=== PATIENT | female | born 1935 | race Caucasian/White ===

== ENCOUNTER 2017-04-29 14:59 | Emergency (ER) | payer MEDICARE, BC ==
[2017-04-29] MEDS ORDERED: SODIUM CHLORIDE 0.9% 1,000 ML IV STA (15:34)
--- NOTE | 2017-04-29 15:38 | ED ---
SOB HPI - General Source: patient, family, RN notes reviewed Mode of arrival: wheelchair Limitations: no limitations - History of Present Illness MD Complaint: shortness of breath <Urbano Goddard - Last Filed: 04/29/17 17:05> <Urbano García - Last Filed: 04/29/17 17:53> - General Chief Complaint: Shortness of Breath Stated Complaint: Diff breathing Time Seen by Provider: 04/29/17 15:15 - History of Present Illness Initial Comments: This is a 82-year-old female with a history dementia COPD from smoking many years ago who is brought in by her son because of wheezing and exertional dyspnea is been going on recently. He also has had hematuria this morning. Patient herself denies any fevers chills nausea vomiting sweats but she again does have dementia. (Urbano Goddard) - Related Data Home Medications Medication Instructions Recorded Confirmed Atorvastatin Calcium [Lipitor] 10 mg PO HS 04/29/17 04/29/17 Donepezil [Aricept] 10 mg PO HS 04/29/17 04/29/17 Hydrochlorothiazide [Hydrodiuril] 25 mg PO DAILY 04/29/17 04/29/17 Levothyroxine Sodium [Synthroid] 88 mcg PO DAILY 04/29/17 04/29/17 Metoprolol Tartrate [Lopressor] 50 mg PO BID 04/29/17 04/29/17 Omeprazole [PriLOSEC] 20 mg PO DAILY 04/29/17 04/29/17 Potassium Chloride [Klor-Con 10] 10 meq PO DAILY 04/29/17 04/29/17 Rivaroxaban [Xarelto] 15 mg PO DAILY 04/29/17 04/29/17 Rivaroxaban [Xarelto] 15 mg PO DAILY 04/29/17 04/29/17 Sertraline [Zoloft] 25 mg PO DAILY 04/29/17 04/29/17 amLODIPine [Norvasc] 10 mg PO DAILY 04/29/17 04/29/17 Previous Rx's Medication Instructions Recorded Albuterol Inhaler [Ventolin Hfa 1 - 2 puff INHALATION Q6HR PRN #1 04/29/17 Inhaler] inhaler Azithromycin [Zithromax Z-pack] 0 mg PO DIRECTED #6 tab 04/29/17 predniSONE 50 mg PO DAILY #5 tablet 04/29/17 Allergies Allergy/AdvReac Type Severity Reaction Status Date / Time No Known Allergies Allergy Verified 04/29/17 15:48 Review of Systems ROS Other: All systems not noted in ROS Statement are negative. <Urbano Goddard - Last Filed: 04/29/17 17:05> ROS Other: All systems not noted in ROS Statement are negative. <Urbano García - Last Filed: 04/29/17 17:53> ROS Statement: Those systems with pertinent positive or pertinent negative responses have been documented in the HPI. Past Medical History Past Medical History: Dementia History of Any Multi-Drug Resistant Organisms: None Reported Past Surgical History: No Surgical Hx Reported Past Psychological History: No Psychological Hx Reported Smoking Status: Former smoker Past Alcohol Use History: None Reported Past Drug Use History: None Reported <Urbano Goddard - Last Filed: 04/29/17 17:05> General Exam Limitations: no limitations General appearance: alert, in no apparent distress Head exam: Present: atraumatic, normocephalic, normal inspection Eye exam: Present: normal appearance, PERRL, EOMI. Absent: scleral icterus, conjunctival injection, periorbital swelling ENT exam: Present: mucous membranes dry Neck exam: Present: normal inspection. Absent: tenderness, meningismus, lymphadenopathy Respiratory exam: Present: decreased breath sounds Cardiovascular Exam: Present: tachycardia GI/Abdominal exam: Present: soft, normal bowel sounds. Absent: distended, tenderness, guarding, rebound, rigid Extremities exam: Present: normal inspection, full ROM, normal capillary refill. Absent: tenderness, pedal edema, joint swelling, calf tenderness Back exam: Present: normal inspection Neurological exam: Present: alert, altered, CN II-XII intact Psychiatric exam: Present: normal affect, normal mood Skin exam: Present: warm, dry, intact, normal color. Absent: rash <Urbnao Goddard - Last Filed: 04/29/17 17:05> <Urbano García - Last Filed: 04/29/17 17:53> - General Exam Comments Initial Comments: This is a well-developed well-nourished awake alert female (Urbano Goddard) Course <Urbano Goddard - Last Filed: 04/29/17 17:05> <Urbano García - Last Filed: 04/29/17 17:53> Vital Signs 04/29/17 04/29/17 15:25 16:46 Temperature 99.4 F Pulse Rate 111 H 100 Respiratory 20 18 Rate Blood Pressure 145/89 127/60 O2 Sat by Pulse 95 98 Oximetry - Reevaluation(s) Reevaluation #1: 04/29/17 17:09 The patient will be endorsed to Dr. García who will make the final disposition. (Urbano Goddard) Reevaluation #2: 04/29/17 17:47 Patient is reevaluated after sign out, her breathing is improved. At that time she does state that she has had some rectal bleeding. Rectal exam reveals multiple hemorrhoids. None of these are currently bleeding. Patient is encouraged to follow up with her primary care physician regarding these hemorrhoids. Hemoglobin 12.0. (Urbano García) Medical Decision Making - Lab Data Result diagrams: 04/29/17 15:15 04/29/17 15:15 <Urbano Goddard - Last Filed: 04/29/17 17:05> - Lab Data Result diagrams: 04/29/17 15:15 04/29/17 15:15 <Urbano García - Last Filed: 04/29/17 17:53> - Medical Decision Making 82-year-old female presented with cough and dyspnea. Patient has no formal diagnosis COPD however she does have a long time smoking history. Patient initially had some mild wheezing throughout all lung sarmiento. Laboratory studies were reviewed and are unremarkable. Chest x-ray is consistent with chronic bronchitis, no focal pneumonia. Patient will be discharged home with outpatient follow-up. She'll be given an inhaler and short course of steroids. Patient and her family was at bedside is agreeable with this plan. (Urbano García) - Lab Data Lab Results 04/29/17 04/29/17 04/29/17 Range/Units 15:15 15:15 15:15 WBC 10.7 H (3.8-10.6) k/uL RBC 3.93 (3.80-5.40) m/uL Hgb 12.0 (11.4-16.0) gm/dL Hct 34.7 (34.0-46.0) % MCV 88.1 (80.0-100.0) fL MCH 30.5 (25.0-35.0) pg MCHC 34.7 (31.0-37.0) g/dL RDW 13.5 (11.5-15.5) % Plt Count 308 (150-450) k/uL Neutrophils % 67 % Lymphocytes % 22 % Monocytes % 6 % Eosinophils % 2 % Basophils % 1 % Neutrophils # 7.1 (1.3-7.7) k/uL Lymphocytes # 2.3 (1.0-4.8) k/uL Monocytes # 0.7 (0-1.0) k/uL Eosinophils # 0.2 (0-0.7) k/uL Basophils # 0.1 (0-0.2) k/uL PT (9.0-12.0) sec INR (<1.1) APTT (22.0-30.0) sec Sodium 143 (137-145) mmol/L Potassium 4.2 (3.5-5.1) mmol/L Chloride 104 (98-107) mmol/L Carbon Dioxide 27 (22-30) mmol/L Anion Gap 12 mmol/L BUN 23 H (7-17) mg/dL Creatinine 1.16 H (0.52-1.04) mg/dL Est GFR (MDRD) Af Amer 54 (>60 ml/min/1.73 sqM) Est GFR (MDRD) Non-Af 45 (>60 ml/min/1.73 sqM) Glucose 96 (74-99) mg/dL Calcium 9.0 (8.4-10.2) mg/dL Magnesium 1.7 (1.6-2.3) mg/dL Total Bilirubin 0.7 (0.2-1.3) mg/dL AST 23 (14-36) U/L ALT 24 (9-52) U/L Alkaline Phosphatase 97 (38-126) U/L Total Creatine Kinase 99 (30-135) U/L CK-MB (CK-2) 2.2 (0.0-2.4) ng/mL CK-MB (CK-2) Rel Index 2.2 Troponin I <0.012 (0.000-0.034) ng/mL NT-Pro-B Natriuret Pep pg/mL Total Protein 6.7 (6.3-8.2) g/dL Albumin 3.8 (3.5-5.0) g/dL Urine Color Urine Appearance (Clear) Urine pH (5.0-8.0) Ur Specific [place] (1.001-1.035) Urine Protein (Negative) Urine Glucose (UA) (Negative) Urine Ketones (Negative) Urine Blood (Negative) Urine Nitrite (Negative) Urine Bilirubin (Negative) Urine Urobilinogen (<2.0) mg/dL Ur Leukocyte Esterase (Negative) Urine RBC (0-5) /hpf Urine WBC (0-5) /hpf Ur Squamous Epith Cells (0-4) /hpf Urine Bacteria (None) /hpf 04/29/17 04/29/17 04/29/17 Range/Units 15:15 15:15 17:00 WBC (3.8-10.6) k/uL RBC (3.80-5.40) m/uL Hgb (11.4-16.0) gm/dL Hct (34.0-46.0) % MCV (80.0-100.0) fL MCH (25.0-35.0) pg MCHC (31.0-37.0) g/dL RDW (11.5-15.5) % Plt Count (150-450) k/uL Neutrophils % % Lymphocytes % % Monocytes % % Eosinophils % % Basophils % % Neutrophils # (1.3-7.7) k/uL Lymphocytes # (1.0-4.8) k/uL Monocytes # (0-1.0) k/uL Eosinophils # (0-0.7) k/uL Basophils # (0-0.2) k/uL PT 11.0 (9.0-12.0) sec INR 1.1 (<1.1) APTT 23.7 (22.0-30.0) sec Sodium (137-145) mmol/L Potassium (3.5-5.1) mmol/L Chloride (98-107) mmol/L Carbon Dioxide (22-30) mmol/L Anion Gap mmol/L BUN (7-17) mg/dL Creatinine (0.52-1.04) mg/dL Est GFR (MDRD) Af Amer (>60 ml/min/1.73 sqM) Est GFR (MDRD) Non-Af (>60 ml/min/1.73 sqM) Glucose (74-99) mg/dL Calcium (8.4-10.2) mg/dL Magnesium (1.6-2.3) mg/dL Total Bilirubin (0.2-1.3) mg/dL AST (14-36) U/L ALT (9-52) U/L Alkaline Phosphatase (38-126) U/L Total Creatine Kinase (30-135) U/L CK-MB (CK-2) (0.0-2.4) ng/mL CK-MB (CK-2) Rel Index Troponin I (0.000-0.034) ng/mL NT-Pro-B Natriuret Pep 3500 pg/mL Total Protein (6.3-8.2) g/dL Albumin (3.5-5.0) g/dL Urine Color Yellow Urine Appearance Clear (Clear) Urine pH 6.0 (5.0-8.0) Ur Specific [place] 1.012 (1.001-1.035) Urine Protein Negative (Negative) Urine Glucose (UA) Negative (Negative) Urine Ketones Negative (Negative) Urine Blood Trace H (Negative) Urine Nitrite Negative (Negative) Urine Bilirubin Negative (Negative) Urine Urobilinogen <2.0 (<2.0) mg/dL Ur Leukocyte Esterase Moderate H (Negative) Urine RBC 1 (0-5) /hpf Urine WBC 8 H (0-5) /hpf Ur Squamous Epith Cells 5 H (0-4) /hpf Urine Bacteria Rare H (None) /hpf Disposition <Urbano Goddard - Last Filed: 04/29/17 17:05> Time of Disposition: 17:52 <Urbano García - Last Filed: 04/29/17 17:53> Clinical Impression: Chronic bronchitis Disposition: HOME SELF-CARE Condition: Good Instructions: Chronic Bronchitis (ED) Prescriptions: Albuterol Inhaler [Ventolin Hfa Inhaler] 1 - 2 puff INHALATION Q6HR PRN #1 inhaler PRN Reason: Wheezing Azithromycin [Zithromax Z-pack] 0 mg PO DIRECTED #6 tab predniSONE 50 mg PO DAILY #5 tablet Referrals: Payal Baron DO [Primary Care Provider] - 1-2 days
[2017-04-29 15:50] LABS: Basophils # (A) 0.1 k/uL (0-0.2); Basophils % (A) 1 %; CH 29.3; CHCM 33.4; Eosinophils # (A) 0.2 k/uL (0-0.7); Eosinophils % (A) 2 %; HCT 34.7 % (34.0-46.0); HDW 2.48; Luc # (Auto) 0.32; Luc % (Auto) 3; Lymphocytes # (A) 2.3 k/uL (1.0-4.8); Lymphocytes % (A) 22 %; MCH 30.5 pg (25.0-35.0); MCHC 34.7 g/dL (31.0-37.0); MCV 88.1 fL (80.0-100.0); Mean Platelet Volume 7.5; Monocytes # (A) 0.7 k/uL (0-1.0); Monocytes % (A) 6 %; Neutrophils # (A) 7.1 k/uL (1.3-7.7); Neutrophils % (A) 67 %; RBC 3.93 m/uL (3.80-5.40); RDW 13.5 % (11.5-15.5); WBC 10.7 k/uL (3.8-10.6); WBC (Perox) 10.63
[2017-04-29 16:01] LABS: Creatine Kinase 99 U/L (30-135)
[2017-04-29 16:03] LABS: Magnesium 1.7 mg/dL (1.6-2.3); Potassium 4.2 mmol/L (3.5-5.1); Total Bilirubin 0.7 mg/dL (0.2-1.3); Total Protein 6.7 g/dL (6.3-8.2)
[2017-04-29 16:11] LABS: INR 1.1 (<1.1); Partial Thromboplastin Time 23.7 sec (22.0-30.0)
[2017-04-29 16:14] LABS: Creatine Kinase MB 2.2 ng/mL (0.0-2.4); Troponin I <0.012 ng/mL (0.000-0.034)
--- NOTE | 2017-04-29 16:24 | XR ---
EXAMINATION TYPE: XR chest 2V DATE OF EXAM: 04/29/2017 COMPARISON: None HISTORY: 82-year-old female difficulty breathing TECHNIQUE: AP and lateral views FINDINGS: The heart is borderline enlarged. There is chronic arch calcifications. Mild diffuse interstitial pro minence with some peribronchial cuffing. Strandy atelectasis in the lower lungs. There is mild hyperi nflation with some flattening of the hemidiaphragms. No consolidation or pleural effusion seen. IMPRESSION: Chronic-appearing changes, possible chronic bronchitis/asthma. Correlate for possible underlying COPD . No focal infiltrate seen.
[2017-04-29 16:51] VITALS: RESP 18
[2017-04-29 17:12] LABS: Appearance,Urine Clear (Clear); Bacteria,Urine Rare /hpf; Bilirubin,Urine Negative (Negative); Glucose,Urine (UA) Negative (Negative); Ketones,Urine Negative (Negative); Leukocyte Esterase,Urine Moderate (Negative); Nitrite,Urine Negative (Negative); Particle Count 1660; Protein,Urine Negative (Negative); RBC,Urine 1 /hpf (0-5); Specific Gravity,Urine 1.012 (1.001-1.035); Squamous Epithelial Cell,Urine 5 /hpf (0-4); UA Billing (MACRO vs. MICRO) MICRO; Urobilinogen,Urine <2.0 mg/dL (<2.0); WBC,Urine 8 /hpf (0-5)
[2017-04-29 18:22] VITALS: BP 109/64; PULSE 102; TEMP 98.1
== END 2017-04-29 18:21 | disposition home or self-care (01) ==
LOC: EC 14:59
DX: J42 Unspecified chronic bronchitis (principal); R00.0 Tachycardia, unspecified; R31.9 Hematuria, unspecified; F03.90 Unspecified dementia, unspecified severity, without behavioral disturbance, psychotic disturbance, mood disturbance, and anxiety; Z87.891 Personal history of nicotine dependence; Z79.01 Long term (current) use of anticoagulants; Z79.899 Other long term (current) drug therapy
CPT/HCPCS: 36415; 71020; 80053; 81001; 82550; 82553; 83735; 83880; 84484; 85025; 85610; 85730; 96360; 96361; 99285

== ENCOUNTER → 2018-08-07 | Outpatient (CLI) | payer MEDICARE, BC ==
--- NOTE | 2018-08-07 14:37 | CT ---
EXAMINATION TYPE: CT brain wo con DATE OF EXAM: 08/07/2018 COMPARISON: None HISTORY: disorientation x3 weeks CT DLP: 1070 mGycm Automated exposure control for dose reduction was used. TECHNIQUE: CT scan of the head is performed without contrast. FINDINGS: There is no acute intracranial hemorrhage or midline shift identified. There is diffuse v entricular and sulcal prominence consistent with diffuse age-related cerebral atrophy. There is low- attenuation in the periventricular white matter consistent with chronic small vessel ischemic change. The globes are intact and the visualized sinuses are clear. IMPRESSION: 1. No acute intracranial hemorrhage or midline shift. 2. Ventricular prominence may be on the basis of diffuse age-related cerebral atrophy or normal press ure hydrocephalus. 2. Confluent areas of nonspecific white matter change with age indeterminate lacunar injury of the le ft lopes radiata favored to be chronic.
== END ==
LOC: RADCTMAIN 12:56
PROVIDERS: ATTEND Family Medicine
DX: R90.89 Other abnormal findings on diagnostic imaging of central nervous system (principal)
CPT/HCPCS: 70450

== ENCOUNTER 2019-11-30 22:21 | Inpatient (IN) | payer MEDICARE, BC ==
[2019-11-30] MEDS ORDERED: SODIUM CHLORIDE 0.9% 1,000 ML IV STA ×2 (22:45→23:37)
[2019-11-30] MEDS ORDERED: SODIUM CHLORIDE 0.9% 500 ML 500 ML IV STA (23:08)
--- NOTE | 2019-11-30 23:08 | ED ---
Weakness HPI - General Chief complaint: Weakness Stated complaint: weakness Time Seen by Provider: 11/30/19 22:45 Source: family, RN notes reviewed Mode of arrival: wheelchair Limitations: no limitations - History of Present Illness Initial comments: This is a 84-year-old female history dementia who started developing a slight cough last night but today her family noticed that she was not walking well and became lethargic and did progress throughout the day. She was not noted have a fever at home however upon arrival here she was found have a fever. She had no nausea no vomiting no phlegm production with her cough she was recently exposed to her son who did have some type of viral infection. He has since recovered. No other modifying factors at this time MD Complaint: generalized weakness - Related Data Home Medications Medication Instructions Recorded Confirmed Donepezil [Aricept] 10 mg PO HS 04/29/17 11/30/19 Levothyroxine Sodium [Synthroid] 88 mcg PO DAILY 04/29/17 11/30/19 Omeprazole [PriLOSEC] 20 mg PO DAILY 04/29/17 11/30/19 Rivaroxaban [Xarelto] 15 mg PO DAILY 04/29/17 11/30/19 amLODIPine [Norvasc] 10 mg PO DAILY 04/29/17 11/30/19 Memantine [Namenda] 10 mg PO BID 11/30/19 11/30/19 Sertraline [Zoloft] 50 mg PO DAILY 11/30/19 11/30/19 Previous Rx's Medication Instructions Recorded Albuterol Inhaler [Ventolin Hfa 1 - 2 puff INHALATION Q6HR PRN #1 04/29/17 Inhaler] inhaler Allergies Allergy/AdvReac Type Severity Reaction Status Date / Time No Known Allergies Allergy Verified 11/30/19 23:28 Review of Systems ROS Statement: Those systems with pertinent positive or pertinent negative responses have been documented in the HPI. ROS Other: All systems not noted in ROS Statement are negative. Past Medical History Past Medical History: Dementia History of Any Multi-Drug Resistant Organisms: None Reported Past Surgical History: No Surgical Hx Reported Past Psychological History: No Psychological Hx Reported Smoking Status: Former smoker Past Alcohol Use History: None Reported Past Drug Use History: None Reported General Exam - General Exam Comments Initial Comments: This is a well-developed asthenic appearing female who is awake alert but confu sed Limitations: no limitations General appearance: alert, anxious Head exam: Present: atraumatic, normocephalic, normal inspection Eye exam: Present: normal appearance, PERRL, EOMI. Absent: scleral icterus, conjunctival injection, periorbital swelling ENT exam: Present: mucous membranes dry Neck exam: Present: normal inspection. Absent: tenderness, meningismus, lymphadenopathy Respiratory exam: Present: decreased breath sounds. Absent: respiratory distress, wheezes, rales, rhonchi, stridor Cardiovascular Exam: Present: normal rhythm, tachycardia, normal heart sounds. Absent: systolic murmur, diastolic murmur, rubs, gallop, clicks GI/Abdominal exam: Present: soft, normal bowel sounds. Absent: distended, tenderness, guarding, rebound, rigid Rectal exam: Present: deferred Extremities exam: Present: normal inspection, full ROM, normal capillary refill. Absent: tenderness, pedal edema, joint swelling, calf tenderness Back exam: Present: normal inspection Neurological exam: Present: alert, altered, CN II-XII intact Psychiatric exam: Present: anxious Skin exam: Present: warm, dry, intact, normal color. Absent: rash Course Vital Signs 11/30/19 11/30/19 12/01/19 22:30 23:11 00:15 Temperature 101.2 F H 98.7 F Pulse Rate 115 H 135 H Respiratory 18 22 18 Rate Blood Pressure 122/57 111/92 O2 Sat by Pulse 96 96 Oximetry - Reevaluation(s) Reevaluation #1: 12/01/19 00:21 I did reassess the patient did discuss findings with the family patient does have influenza type a as well as dehydration renal insufficiency and new onset A. fib RVR. Reevaluation #2: 12/01/19 00:23 The elevated lactate appears to be secondary to dehydration Medical Decision Making - Lab Data Result diagrams: 11/30/19 22:04 11/30/19 22:04 Lab Results 11/30/19 11/30/19 11/30/19 Range/Units 22:04 22:04 22:04 WBC 9.0 (3.8-10.6) k/uL RBC 4.50 (3.80-5.40) m/uL Hgb 11.7 (11.4-16.0) gm/dL Hct 37.2 (34.0-46.0) % MCV 82.6 (80.0-100.0) fL MCH 26.1 (25.0-35.0) pg MCHC 31.5 (31.0-37.0) g/dL RDW 15.6 H (11.5-15.5) % Plt Count 286 (150-450) k/uL Neutrophils % 91 % Lymphocytes % 4 % Monocytes % 4 % Eosinophils % 1 % Basophils % 0 % Neutrophils # 8.1 H (1.3-7.7) k/uL Lymphocytes # 0.3 L (1.0-4.8) k/uL Monocytes # 0.4 (0-1.0) k/uL Eosinophils # 0.1 (0-0.7) k/uL Basophils # 0.0 (0-0.2) k/uL Hypochromasia Moderate PT (9.0-12.0) sec INR (<1.2) APTT (22.0-30.0) sec Sodium 138 (137-145) mmol/L Potassium 4.5 (3.5-5.1) mmol/L Chloride 102 (98-107) mmol/L Carbon Dioxide 24 (22-30) mmol/L Anion Gap 12 mmol/L BUN 24 H (7-17) mg/dL Creatinine 1.82 H (0.52-1.04) mg/dL Est GFR (CKD-EPI)AfAm 29 (>60 ml/min/1.73 sqM) Est GFR (CKD-EPI)NonAf 25 (>60 ml/min/1.73 sqM) Glucose 215 H (74-99) mg/dL Plasma Lactic Acid Adalid 2.8 H* (0.7-2.0) mmol/L Calcium 9.3 (8.4-10.2) mg/dL Magnesium 1.8 (1.6-2.3) mg/dL Total Bilirubin 0.6 (0.2-1.3) mg/dL AST 19 (14-36) U/L ALT 10 (4-34) U/L Alkaline Phosphatase 129 H (38-126) U/L Creatine Kinase 35 (30-135) U/L Troponin I (0.000-0.034) ng/mL Total Protein 6.8 (6.3-8.2) g/dL Albumin 4.0 (3.5-5.0) g/dL Urine Color Urine Appearance (Clear) Urine pH (5.0-8.0) Ur Specific [place] (1.001-1.035) Urine Protein (Negative) Urine Glucose (UA) (Negative) Urine Ketones (Negative) Urine Blood (Negative) Urine Nitrite (Negative) Urine Bilirubin (Negative) Urine Urobilinogen (<2.0) mg/dL Ur Leukocyte Esterase (Negative) Urine RBC (0-5) /hpf Urine WBC (0-5) /hpf Ur Squamous Epith Cells (0-4) /hpf Amorphous Sediment (None) /hpf Urine Bacteria (None) /hpf Hyaline Casts (0-2) /lpf Urine Mucus (None) /hpf Influenza Type A RNA (Not Detectd) Influenza Type B (PCR) (Not Detectd) 11/30/19 11/30/19 11/30/19 Range/Units 22:04 22:04 22:04 WBC (3.8-10.6) k/uL RBC (3.80-5.40) m/uL Hgb (11.4-16.0) gm/dL Hct (34.0-46.0) % MCV (80.0-100.0) fL MCH (25.0-35.0) pg MCHC (31.0-37.0) g/dL RDW (11.5-15.5) % Plt Count (150-450) k/uL Neutrophils % % Lymphocytes % % Monocytes % % Eosinophils % % Basophils % % Neutrophils # (1.3-7.7) k/uL Lymphocytes # (1.0-4.8) k/uL Monocytes # (0-1.0) k/uL Eosinophils # (0-0.7) k/uL Basophils # (0-0.2) k/uL Hypochromasia PT 10.2 (9.0-12.0) sec INR 1.0 (<1.2) APTT 21.5 L (22.0-30.0) sec Sodium (137-145) mmol/L Potassium (3.5-5.1) mmol/L Chloride (98-107) mmol/L Carbon Dioxide (22-30) mmol/L Anion Gap mmol/L BUN (7-17) mg/dL Creatinine (0.52-1.04) mg/dL Est GFR (CKD-EPI)AfAm (>60 ml/min/1.73 sqM) Est GFR (CKD-EPI)NonAf (>60 ml/min/1.73 sqM) Glucose (74-99) mg/dL Plasma Lactic Acid Adalid (0.7-2.0) mmol/L Calcium (8.4-10.2) mg/dL Magnesium (1.6-2.3) mg/dL Total Bilirubin (0.2-1.3) mg/dL AST (14-36) U/L ALT (4-34) U/L Alkaline Phosphatase (38-126) U/L Creatine Kinase (30-135) U/L Troponin I 0.018 (0.000-0.034) ng/mL Total Protein (6.3-8.2) g/dL Albumin (3.5-5.0) g/dL Urine Color Yellow Urine Appearance Cloudy H (Clear) Urine pH 6.0 (5.0-8.0) Ur Specific [place] 1.018 (1.001-1.035) Urine Protein Trace H (Negative) Urine Glucose (UA) Negative (Negative) Urine Ketones Negative (Negative) Urine Blood Negative (Negative) Urine Nitrite Negative (Negative) Urine Bilirubin Negative (Negative) Urine Urobilinogen 2.0 (<2.0) mg/dL Ur Leukocyte Esterase Moderate H (Negative) Urine RBC 1 (0-5) /hpf Urine WBC 15 H (0-5) /hpf Ur Squamous Epith Cells 1 (0-4) /hpf Amorphous Sediment Rare H (None) /hpf Urine Bacteria Occasional H (None) /hpf Hyaline Casts 29 H (0-2) /lpf Urine Mucus Occasional H (None) /hpf Influenza Type A RNA (Not Detectd) Influenza Type B (PCR) (Not Detectd) 11/30/19 Range/Units 22:04 WBC (3.8-10.6) k/uL RBC (3.80-5.40) m/uL Hgb (11.4-16.0) gm/dL Hct (34.0-46.0) % MCV (80.0-100.0) fL MCH (25.0-35.0) pg MCHC (31.0-37.0) g/dL RDW (11.5-15.5) % Plt Count (150-450) k/uL Neutrophils % % Lymphocytes % % Monocytes % % Eosinophils % % Basophils % % Neutrophils # (1.3-7.7) k/uL Lymphocytes # (1.0-4.8) k/uL Monocytes # (0-1.0) k/uL Eosinophils # (0-0.7) k/uL Basophils # (0-0.2) k/uL Hypochromasia PT (9.0-12.0) sec INR (<1.2) APTT (22.0-30.0) sec Sodium (137-145) mmol/L Potassium (3.5-5.1) mmol/L Chloride (98-107) mmol/L Carbon Dioxide (22-30) mmol/L Anion Gap mmol/L BUN (7-17) mg/dL Creatinine (0.52-1.04) mg/dL Est GFR (CKD-EPI)AfAm (>60 ml/min/1.73 sqM) Est GFR (CKD-EPI)NonAf (>60 ml/min/1.73 sqM) Glucose (74-99) mg/dL Plasma Lactic Acid Adalid (0.7-2.0) mmol/L Calcium (8.4-10.2) mg/dL Magnesium (1.6-2.3) mg/dL Total Bilirubin (0.2-1.3) mg/dL AST (14-36) U/L ALT (4-34) U/L Alkaline Phosphatase (38-126) U/L Creatine Kinase (30-135) U/L Troponin I (0.000-0.034) ng/mL Total Protein (6.3-8.2) g/dL Albumin (3.5-5.0) g/dL Urine Color Urine Appearance (Clear) Urine pH (5.0-8.0) Ur Specific [place] (1.001-1.035) Urine Protein (Negative) Urine Glucose (UA) (Negative) Urine Ketones (Negative) Urine Blood (Negative) Urine Nitrite (Negative) Urine Bilirubin (Negative) Urine Urobilinogen (<2.0) mg/dL Ur Leukocyte Esterase (Negative) Urine RBC (0-5) /hpf Urine WBC (0-5) /hpf Ur Squamous Epith Cells (0-4) /hpf Amorphous Sediment (None) /hpf Urine Bacteria (None) /hpf Hyaline Casts (0-2) /lpf Urine Mucus (None) /hpf Influenza Type A RNA Detected H (Not Detectd) Influenza Type B (PCR) Not Detected (Not Detectd) - EKG Data -: EKG Interpreted by Me (Atrial fibrillation rate was 132 QRS 62 QT since QTC 312/[address]) - Radiology Data Radiology results: report reviewed, image reviewed Critical Care Time Critical Care Time: Yes Critical Care Time: 35 minutes critical care time which includes initial presentation with history physical labs x-rays multiple reevaluation the patient discussed with patient family regarding the findings discussed with the admitting physician admission orders and documentation of the above Disposition Clinical Impression: Rapid atrial fibrillation, Influenza due to influenza virus, type A, human, Dehydration, Renal insufficiency syndrome, Febrile illness, acute Disposition: ADMITTED IP TO THIS HOSP Condition: Fair Referrals: Shyam Albarran MD [Primary Care Provider] - 1-2 days
--- NOTE | 2019-11-30 23:19 | XR ---
EXAMINATION TYPE: XR chest 2V DATE OF EXAM: 11/30/2019 COMPARISON: 04/29/2017 HISTORY: Difficulty breathing TECHNIQUE: 2 views FINDINGS: There is hiatal hernia. Lungs are clear of infiltrate. Heart is enlarged. There is no pleur al effusion. There are chest leads. IMPRESSION: Hiatal hernia. No active cardiopulmonary disease. No change.
[2019-11-30 23:24] LABS: Prothrombin Time 10.2 sec (9.0-12.0)
[2019-11-30 23:28] LABS: Amorphous Sediment,Urine Rare /hpf; Appearance,Urine Cloudy (Clear); Bacteria,Urine Occasional /hpf; Bilirubin,Urine Negative (Negative); Blood,Urine Negative (Negative); Calcium 9.3 mg/dL (8.4-10.2); Color,Urine Yellow; Glucose,Urine (UA) Negative (Negative); Hyaline Casts,Urine 29 /lpf (0-2); Ketones,Urine Negative (Negative); Leukocyte Esterase,Urine Moderate (Negative); Magnesium 1.8 mg/dL (1.6-2.3); Mucus,Urine Occasional /hpf; Nitrite,Urine Negative (Negative); Potassium 4.5 mmol/L (3.5-5.1); Protein,Urine Trace (Negative); RBC,Urine 1 /hpf (0-5); Specific Gravity,Urine 1.018 (1.001-1.035); Squamous Epithelial Cell,Urine 1 /hpf (0-4); Total Bilirubin 0.6 mg/dL (0.2-1.3); Total Protein 6.8 g/dL (6.3-8.2); WBC,Urine 15 /hpf (0-5)
[2019-11-30 23:33] LABS: Partial Thromboplastin Time 21.5 sec (22.0-30.0)
[2019-11-30 23:36] LABS: Basophils % (A) 0 %; Eosinophils # (A) 0.1 k/uL (0-0.7); Eosinophils % (A) 1 %; HCT 37.2 % (34.0-46.0); HGB 11.7 gm/dL (11.4-16.0); Hypochromasia Moderate; Lymphocytes # (A) 0.3 k/uL (1.0-4.8); Lymphocytes % (A) 4 %; MCH 26.1 pg (25.0-35.0); MCHC 31.5 g/dL (31.0-37.0); MCV 82.6 fL (80.0-100.0); Monocytes # (A) 0.4 k/uL (0-1.0); Monocytes % (A) 4 %; Neutrophils # (A) 8.1 k/uL (1.3-7.7); Neutrophils % (A) 91 %; Platelet Count 286 k/uL (150-450); RDW 15.6 % (11.5-15.5)
[2019-11-30] MEDS ORDERED: OSELTAMIVIR 75 MG CAP PO STA (23:37)
[2019-11-30] MEDS ORDERED: MAGNESIUM SULFATE-D5W PMX 1 GM in DEXTROSE/WATER 1 100ML.BAG IVPB ONE (23:37)
[2019-12-01] MEDS ORDERED: DILTIAZEM DRIP BOLUS FROM BAG 1 MG SOLN IV ONE (00:20)
[2019-12-01] MEDS ORDERED: NALOXONE 0.4 MG/ML 1 ML VIAL IV PRN (00:24)
[2019-12-01] MEDS: DILTIAZEM 125 MG in SODIUM CHLORIDE 0.9% 100 ML IV SCH (00:32)
[2019-12-01] MEDS: SODIUM CHLORIDE 0.9% 1,000 ML IV SCH ×4 (00:36→23:42)
--- NOTE | 2019-12-01 04:54 | XR ---
EXAMINATION TYPE: XR chest 1V portable DATE OF EXAM: 12/01/2019 COMPARISON: 11/30/2019 HISTORY: Weakness TECHNIQUE: FINDINGS: There is no heart failure nor confluent pneumonic infiltrate. Costophrenic angles are clear . There is calcified granulomata at the pulmonary tegan. There is hiatal hernia. The bony thorax is in tact. IMPRESSION: No active cardiopulmonary disease. Old granulomatous disease. No change.
[2019-12-01] MEDS: PANTOPRAZOLE 40 MG TABLET PO SCH (07:11)
[2019-12-01] MEDS: LEVOTHYROXINE 88 MCG TAB PO SCH (07:11)
[2019-12-01] MEDS: ALBUTEROL NEBULIZED 2.5 MG/3 ML INHALATION SCH ×3 (08:11→17:49)
[2019-12-01] MEDS: SERTRALINE 50 MG TAB PO SCH (08:43)
[2019-12-01] MEDS: amLODIPine 10 MG TAB PO SCH (08:43)
[2019-12-01] MEDS: MEMANTINE 10 MG TAB PO SCH ×2 (08:43→23:52)
--- NOTE | 2019-12-01 08:54 | CONS ---
BENJI Fragoso is an 84-year-old lady with history of hypertension, permanent atrial fibrillation and dementia who presented to hospital complaining of shortness of breath and was found to be positive for flu and was in atrial fibrillation with rapid ventricular rate. She started off with cough and became progressively more lethargic and unwell. I am not able to obtain any meaningful information from the patient. At the time of my evaluation, she is in atrial fibrillation with poorly controlled ventricular rate. She is on intravenous Cardizem drip. The patient is currently on Aricept, Synthroid, Prilosec, Xarelto, Norvasc, Namenda, Zoloft and albuterol. ALLERGIES: There are no known drug allergies. FAMILY HISTORY: Negative for premature coronary artery disease. SOCIAL HISTORY: Negative for current smoking, EtOH abuse, or drug abuse. REVIEW OF SYSTEMS: HEENT is unremarkable. CARDIAC: As described above. RESPIRATORY: Significant for shortness of breath. GI: Negative. GENITOURINARY: Negative. ALLERGY/IMMUNOLOGY: Negative. SKIN: Negative. MUSCULOSKELETAL: Significant for arthritis. PSYCHOSOCIAL: Negative. ENDOCRINE: Negative. DERM: Negative. CONSTITUTIONAL: Significant for flu. The rest of the system review is not relevant. PHYSICAL EXAMINATION: On exam, patient is comfortable at rest. Afebrile. Heart rate is 110 beats per minute. Blood pressure is 124/89. Respiratory rate is 18. Chest exam reveals diminished air entry at the bases. Heart exam reveals first and second heart sounds. Systolic murmur at the apex. Irregular rhythm. Abdomen is soft. Exam of extremities did not reveal any edema. Peripheral pulses are felt. LABS: Labs show a hemoglobin of 11.7, platelet count is 286, potassium is 4.5, BUN is 24, creatinine is 1.8. She is positive for influenza A. ASSESSMENT: 1. Permanent atrial fibrillation with poorly controlled ventricular rate. 2. Flu. PLAN: I will obtain a 2D echo on her to evaluate her LV function and continue the Cardizem drip and adjust as needed. MMODL / IJN: [id number] /
[2019-12-01] MEDS ORDERED: OSELTAMIVIR 75 MG CAP PO SCH (09:00)
--- NOTE | 2019-12-01 11:58 | ECHOF ---
Referral Reason:afib MEASUREMENTS -------- HEIGHT: 149.9 cm WEIGHT: 63.5 kg BP: 144/89 RVIDd: 3.4 cm (< 3.3) IVSd: 1.2 cm (0.6 - 1.1) LVIDd: 3.2 cm (3.9 - 5.3) LVPWd: 1.1 cm (0.6 - 1.1) IVSs: 1.7 cm LVIDs: 2.2 cm LVPWs: 1.5 cm LA Diam: 3.2 cm (2.7 - 3.8) LAESV Index (A-L): 19.09 ml/m Ao Diam: 3.0 cm (2.0 - 3.7) AV Cusp: 1.8 cm (1.5 - 2.6) MV EXCURSION: 13.991 mm (> 18.000) MV EF SLOPE: 88 mm/s (70 - 150) EPSS: 0.8 cm RAP: 15.00 mmHg RVSP: 36.52 mmHg FINDINGS -------- Atrial fibrillation. This was a technically adequate study. The left ventricular size is normal. There is borderline concentric left ventricular hypertrophy. Overall left ventricular systolic function is mildly impaired with, an EF between 45 - 50 %. The right ventricle is mildly enlarged. Normal LA size by volume 22+/-6 ml/m2. The right atrium is normal in size. Interatrial and interventricular septum intact. The aortic valve is trileaflet and appears structurally normal. Mild mitral annular calcification present. Mild mitral regurgitation is present. Mild tricuspid regurgitation present. There is mild pulmonary hypertension. The right ventricular systolic pressure, as measured by Doppler, is 36.52mmHg. There is no pulmonic regurgitation present. The aortic root size is normal. Normal inferior vena cava with less than 50% inspiratory collapse consistent with estimated right atr ial pressure of 15 mmHg. There is no pericardial effusion. CONCLUSIONS -------- 1. Atrial fibrillation. 2. This was a technically adequate study. 3. The left ventricular size is normal. 4. There is borderline concentric left ventricular hypertrophy. 5. Overall left ventricular systolic function is mildly impaired with, an EF between 45 - 50 %. 6. The right ventricle is mildly enlarged. 7. Normal LA size by volume 22+/-6 ml/m2. 8. The right atrium is normal in size. 9. Interatrial and interventricular septum intact. 10. The aortic valve is trileaflet and appears structurally normal. 11. Mild mitral annular calcification present. 12. Mild mitral regurgitation is present. 13. Mild tricuspid regurgitation present. 14. There is mild pulmonary hypertension. 15. The right ventricular systolic pressure, as measured by Doppler, is 36.52mmHg. 16. There is no pulmonic regurgitation present. 17. The aortic root size is normal. 18. Normal inferior vena cava with less than 50% inspiratory collapse consistent with estimated right atrial pressure of 15 mmHg. 19. There is no pericardial effusion. TANK ERECTOR: Jennifer Lee RDCS
[2019-12-01] MEDS: RIVAROXABAN 15 MG TAB PO SCH (15:53)
--- NOTE | 2019-12-01 21:22 | P.HPIM ---
History of Present Illness H&P Date: 12/01/19 Chief Complaint: Short of breath tired History of presenting complaint: This is a pleasant 84-year-old patient of Dr. jules. Chronic stable medical conditions include COPD, dementia, hypertension, osteoarthritis, hypothyroid,. Patient visits her son and [id number]. Normally uses a walker. He is group fitness assistant department head with some activities. Patient was noted to have a cough tired and became less active the course of 24 hours. We'll rundown congested chest. In the ER was noted to have a low-grade fever. Also found to be A. fib with rapid ventricular rate became more short of breath and ear. The problem BiPAP. Also put on a Cardizem drip for the A. fib. Really tired not able to give herself much of her history. Review of systems: GEN.: Tired fever EYES: None HEENT: None NECK: None RESPIRATORY: Congested chest] CARDIOVASCULAR: None GASTROINTESTINAL: None GENITOURINARY: None MUSCULOSKELETAL: Joint pains LYMPHATICS: None HEMATOLOGICAL: None PSYCHIATRY: [Forgetful NEUROLOGICAL: Uses a walker Past medical history to include: COPD, TIA, dementia, hypertension, osteoarthritis, hypothyroid, TIA, Social history: Physical son and [id number]. Does use a walker. Can feed herself with the food is so in small pieces. Does need assistance with bathing and dressing. Gets a daily caregiver. Does smoke in her teens and quit 20-30 years ago. No alcohol. Physical examination: VITAL SIGNS: 101.2, 115, 18, 122/57, 96% on room air GENERAL: BMI 28.3, laying in bed tired short of breath a bit lethargic. On BiPAP EYES: Pupils equal. Conjunctiva normal. HEENT: External appearance of nose and ears normal, oral cavity grossly normal. NECK: JVD unable to assess; masses not palpable. HEART: Heart sounds irregular no edema. LUNGS: Respiratory rate increased, decreased breaths on increased expiration. ABDOMEN: Soft, nontender, liver spleen not palpable, no masses palpable. PSYCH: [Lethargic tired NEUROLOGICAL: Cranial nerves grossly intact; no facial asymmetry, power and sensation grossly intact. LYMPHATICS: No lymph nodes palpable in the axilla and neck INVESTIGATIONS, reviewed in the clinical context: White count 9 hemoglobin 11.7 potassium 4.5 BUN 24 creatinine 1.8 to peptic acid 2.8 Troponin I 0.018, 0.0-5 UA positive for leukoesterase, bacteria hyaline casts Influenza type A RNA positive EKG tracing personally reviewed by me-Rj fib with a rate around 130s Chest x-ray film personally reviewed by me-possible basal infiltrate Assessment: -Acute influenza A pneumonitis, cannot rule out secondary bacterial infection, causing sepsis POA -Persistent atrial fibrillation with a rapid ventricular rate, chronically on xarelto -Troponin leak likely from uncontrolled A. fib doubt acute coronary syndrome -Acute hypoxic respiratory failure patient requiring BiPAP use this morning -Major cognitive impairment probably from late onset Alzheimer's dementia -Gait dysfunction uses a walker -Possible UTI -Kidney injury, acute versus chronic or both -Acute metabolic encephalopathy, multifactorial -Acute COPD exacerbation in an ex-smoker -Essential hypertension -Primary osteoarthritis -Hypothyroid Plan: Cardiology was consulted. Patient is put on a BiPAP. DuoNeb's, Tamiflu. Give IV fluids. Recheck renal function. Add inhaled steroids. And IV Solu-Medrol. Continue family the bedside. Prognosis guarded. Past Medical History Past Medical History: COPD, CVA/TIA, Dementia, Hypertension, Osteoarthritis (OA), Thyroid Disorder Additional Past Medical History / Comment(s): TIA, colitis in her 30s, hypothyroid, emphysema, bronchitis. History of Any Multi-Drug Resistant Organisms: None Reported Past Surgical History: No Surgical Hx Reported Additional Past Surgical History / Comment(s): Pt has never had surgery. Past Anesthesia/Blood Transfusion Reactions: Unable to Obtain Smoking Status: Former smoker - Past Family History Father Family Medical History: Myocardial Infarction (CT) Additional Family Medical History / Comment(s): Father of a CT at the age of 62 yrs. Mother Family Medical History: Respiratory Disorder Additional Family Medical History / Comment(s): Mother had lung disease. Medications and Allergies Home Medications Medication Instructions Recorded Confirmed Type Albuterol Inhaler [Ventolin Hfa 1 - 2 puff INHALATION Q6HR PRN #1 04/29/17 11/30/19 Rx Inhaler] inhaler Donepezil [Aricept] 10 mg PO HS 04/29/17 11/30/19 History Levothyroxine Sodium [Synthroid] 88 mcg PO DAILY 04/29/17 11/30/19 History Omeprazole [PriLOSEC] 20 mg PO DAILY 04/29/17 11/30/19 History Rivaroxaban [Xarelto] 15 mg PO DAILY 04/29/17 11/30/19 History amLODIPine [Norvasc] 10 mg PO DAILY 04/29/17 11/30/19 History Memantine [Namenda] 10 mg PO BID 11/30/19 11/30/19 History Sertraline [Zoloft] 50 mg PO DAILY 11/30/19 11/30/19 History Allergies Allergy/AdvReac Type Severity Reaction Status Date / Time No Known Allergies Allergy Verified 11/30/19 23:28 Physical Exam Vitals: Vital Signs Temp Pulse Resp BP Pulse Ox 12/01/19 10:00 81 18 118/69 95 12/01/19 09:00 100 18 127/89 94 L 12/01/19 08:31 90 18 94 L 12/01/19 08:27 101 H 12/01/19 08:12 96 12/01/19 08:00 99.8 F H 95 22 144/89 91 L 12/01/19 04:47 93 L 12/01/19 04:45 112 H 24 121/76 85 L 12/01/19 03:13 102 H 18 132/99 95 12/01/19 01:54 115 H 18 113/82 94 L 12/01/19 00:38 114 H 18 127/86 96 12/01/19 00:15 98.7 F 135 H 18 111/92 96 11/30/19 23:11 22 11/30/19 22:30 101.2 F H 115 H 18 122/57 96 Intake and Output 11/30/19 12/01/19 12/01/19 22:59 06:59 14:59 Intake Total 7.25 Balance 7.25 Intake: Intake, IV Titration 7.25 Amount Diltiazem 125 mg In 7.25 Sodium Chloride 0.9% 100 ml @ 5 MG/HR 5 mls/hr IV .Q24H [facility] Rx#:[id number] Other: Weight 63.503 kg 63.503 kg Results CBC & Chem 7: 11/30/19 22:04 11/30/19 22:04 Labs: Abnormal Lab Results - Last 24 Hours (Table) 11/30/19 11/30/19 11/30/19 Range/Units 22:04 22:04 22:04 RDW 15.6 H (11.5-15.5) % Neutrophils # 8.1 H (1.3-7.7) k/uL Lymphocytes # 0.3 L (1.0-4.8) k/uL APTT (22.0-30.0) sec BUN 24 H (7-17) mg/dL Creatinine 1.82 H (0.52-1.04) mg/dL Glucose 215 H (74-99) mg/dL Plasma Lactic Acid Adalid 2.8 H* (0.7-2.0) mmol/L Alkaline Phosphatase 129 H (38-126) U/L Urine Appearance (Clear) Urine Protein (Negative) Ur Leukocyte Esterase (Negative) Urine WBC (0-5) /hpf Amorphous Sediment (None) /hpf Urine Bacteria (None) /hpf Hyaline Casts (0-2) /lpf Urine Mucus (None) /hpf Influenza Type A RNA (Not Detectd) 11/30/19 11/30/19 11/30/19 Range/Units 22:04 22:04 22:04 RDW (11.5-15.5) % Neutrophils # (1.3-7.7) k/uL Lymphocytes # (1.0-4.8) k/uL APTT 21.5 L (22.0-30.0) sec BUN (7-17) mg/dL Creatinine (0.52-1.04) mg/dL Glucose (74-99) mg/dL Plasma Lactic Acid Adalid (0.7-2.0) mmol/L Alkaline Phosphatase (38-126) U/L Urine Appearance Cloudy H (Clear) Urine Protein Trace H (Negative) Ur Leukocyte Esterase Moderate H (Negative) Urine WBC 15 H (0-5) /hpf Amorphous Sediment Rare H (None) /hpf Urine Bacteria Occasional H (None) /hpf Hyaline Casts 29 H (0-2) /lpf Urine Mucus Occasional H (None) /hpf Influenza Type A RNA Detected H (Not Detectd) Thrombosis Risk Factor Assmnt - Choose All That Apply Any of the Below Risk Factors Present?: Yes Each Factor Represents 1 point: Abnormal pulmonary function (COPD), Obesity (BMI >25) Other Risk Factors: Yes Each Risk Factor Represents 3 Points: Age 75 years or older Other congenital or acquired thrombophilia - If yes, enter type in comment: No Thrombosis Risk Factor Assessment Total Risk Factor Score: 5 Thrombosis Risk Factor Assessment Level: High Risk
[2019-12-01 22:41] LABS: Calcium 8.1 mg/dL (8.4-10.2)
[2019-12-01] MEDS: DONEPEZIL 10 MG TAB PO SCH (23:52)
[2019-12-02] MEDS: DILTIAZEM 125 MG in SODIUM CHLORIDE 0.9% 100 ML IV SCH (00:30)
[2019-12-02] MEDS: ALBUTEROL NEBULIZED 2.5 MG/3 ML INHALATION SCH ×6 (00:46→23:42)
[2019-12-02] MEDS: PANTOPRAZOLE 40 MG TABLET PO SCH (07:11)
[2019-12-02] MEDS: SODIUM CHLORIDE 0.9% 1,000 ML IV SCH ×3 (07:11→17:00)
[2019-12-02] MEDS: LEVOTHYROXINE 88 MCG TAB PO SCH (07:11)
[2019-12-02 07:28] LABS: HCT 27.5 % (34.0-46.0); Hypochromasia Marked; MCH 25.8 pg (25.0-35.0); MCHC 31.1 g/dL (31.0-37.0); MCV 82.8 fL (80.0-100.0); Mean Platelet Volume 7.9; Platelet Count 194 k/uL (150-450); RBC 3.32 m/uL (3.80-5.40); RDW 15.9 % (11.5-15.5); WBC 4.3 k/uL (3.8-10.6)
[2019-12-02 07:34] LABS: Calcium 8.1 mg/dL (8.4-10.2); Potassium 3.9 mmol/L (3.5-5.1)
[2019-12-02 07:40] LABS: HGB 8.6 gm/dL (11.4-16.0)
[2019-12-02] MEDS: amLODIPine 10 MG TAB PO SCH (08:00)
[2019-12-02] MEDS: OSELTAMIVIR 60 MG/10 ML ORAL SYRINGE PO SCH (08:01)
[2019-12-02] MEDS: MEMANTINE 10 MG TAB PO SCH (08:01)
[2019-12-02] MEDS: SERTRALINE 50 MG TAB PO SCH (08:01)
[2019-12-02] MEDS: RIVAROXABAN 15 MG TAB PO SCH (08:01)
[2019-12-02] MEDS: METOPROLOL TARTRATE 25 MG TAB PO SCH ×2 (11:39→21:22)
--- NOTE | 2019-12-02 12:24 | P.PN ---
Subjective Progress Note Date: 12/02/19 This is an 84-year-old female with known history of hypertension, persistent atrial fibrillation, dementia, who presented to the hospital with symptoms of shortness of breath and malaise, she was found to be positive for the flu. Cardiology consultation was requested because of atrial fibrillation with a rapid ventricular response. Patient was seen in consultation yesterday by Dr. Zuñiga. Initiated on IV Cardizem drip. Echocardiogram with Doppler study was performed which revealed an ejection fraction of 45-50%. Blood pressure today 144/80 with a heart rate in the 80s. 91% on BiPAP. White blood cell count 4.3, hemoglobin 8.6, platelet count 194. Sodium 141, potassium 3.9, BUN 15, creatinine 1.3. Objective - Vital Signs Vital signs: Vital Signs Temp 97.6 F 12/01/19 20:00 Pulse 80 12/02/19 09:26 Resp 24 12/02/19 04:00 BP 145/83 12/02/19 00:00 Pulse Ox 91 L 12/02/19 00:00 Intake & Output 12/01/19 12/02/19 12/02/19 18:59 06:59 18:59 Intake Total 117.75 650 60 Balance 117.75 650 60 Weight 63.503 kg 70 kg Intake: Intake, IV Titration 117.75 Amount Diltiazem 125 mg In 117.75 Sodium Chloride 0.9% 100 ml @ 5 MG/HR 5 mls/hr IV .Q24H [facility] Rx#:[id number] Oral 60 Tube Feeding 650 Other: Voiding Method Diaper Diaper # Voids 1 1 # Bowel Movements 1 1 - Exam PHYSICAL EXAMINATION: GENERAL: 84-year-old female in no acute distress at the time of my examination HEENT: Head is atraumatic, normocephalic. Pupils equal, round. Sclera anicteric. Conjunctiva are clear. Mucous membranes of the mouth are moist. Neck is supple. There is no elevated jugular venous pressure. No carotid bruit is heard. HEART EXAMINATION: Heart S1 and S2 irregularly irregular a soft systolic murmur is heard CHEST EXAMINATION: Reveal scattered coarse rhonchi throughout. ABDOMEN: Soft, nontender. Bowel sounds are heard. No organomegaly noted. EXTREMITIES: 2+ peripheral pulses with no evidence of peripheral edema and no calf tenderness noted. NEUROLOGIC patient is awake, alert and oriented 1 . . - Labs CBC & Chem 7: 12/02/19 06:39 12/02/19 06:39 Labs: Abnormal Lab Results - Last 24 Hours (Table) 12/01/19 12/02/19 12/02/19 Range/Units 21:48 06:39 06:39 RBC 3.32 L (3.80-5.40) m/uL Hgb 8.6 L D (11.4-16.0) gm/dL Hct 27.5 L (34.0-46.0) % RDW 15.9 H (11.5-15.5) % Chloride 109 H 113 H (98-107) mmol/L Creatinine 1.23 H 1.30 H (0.52-1.04) mg/dL Glucose 106 H (74-99) mg/dL Calcium 8.1 L 8.1 L (8.4-10.2) mg/dL Microbiology - Last 24 Hours (Table) 11/30/19 22:04 Blood Culture - Preliminary Blood No Growth after 24 hours 11/30/19 22:04 Urine Culture - Preliminary Urine,Clean Catch Assessment and Plan Plan: Assessment and plan #1 influenza A #2 persistent atrial fibrillation #3 dementia #4 abnormality in troponin, no significant rise and fall pattern, likely secondary to influenza Plan Echocardiogram with Doppler study revealed an ejection fraction of 45-50%. We will discontinue the IV Cardizem drip, start patient on some beta radha. Continue Xarelto 15 mg daily. DNP note has been reviewed, I agree with a documented findings and plan of care. Patient was seen and examined.
--- NOTE | 2019-12-02 16:12 | P.CNPUL ---
History of Present Illness Consult date: 12/02/19 Reason for consult: dyspnea Chief complaint: Shortness of breath History of present illness: This is a 84-year-old female who was seen evaluated examined on third floor patient presented into the emergency department with increased symptoms of shortness of breath and generalized aches and pain patient has been found to positive for influenza as well, patient has been on A. fib with rapid ventricular response has been admitted to the hospital initially she was placed on BiPAP and Cardizem drip, subsequently changed to nasal cannula currently on 2 L oxygen, BiPAP has been discontinued, echocardiogram revealed ejection fraction of 45%, not much data obtained from the patient she is pleasantly confused Review of Systems All systems: negative Past Medical History Past Medical History: COPD, CVA/TIA, Dementia, Hypertension, Osteoarthritis (OA), Thyroid Disorder Additional Past Medical History / Comment(s): TIA, colitis in her 30s, hypothyroid, emphysema, bronchitis. History of Any Multi-Drug Resistant Organisms: None Reported Past Surgical History: No Surgical Hx Reported Additional Past Surgical History / Comment(s): Pt has never had surgery. Past Anesthesia/Blood Transfusion Reactions: Unable to Obtain Smoking Status: Former smoker - Past Family History Father Family Medical History: Myocardial Infarction ([place]) Additional Family Medical History / Comment(s): Father of a [place] at the age of 62 yrs. Mother Family Medical History: Respiratory Disorder Additional Family Medical History / Comment(s): Mother had lung disease. Medications and Allergies Home Medications Medication Instructions Recorded Confirmed Type Albuterol Inhaler [Ventolin Hfa 1 - 2 puff INHALATION Q6HR PRN #1 04/29/17 11/30/19 Rx Inhaler] inhaler Donepezil [Aricept] 10 mg PO HS 04/29/17 11/30/19 History Levothyroxine Sodium [Synthroid] 88 mcg PO DAILY 04/29/17 11/30/19 History Omeprazole [PriLOSEC] 20 mg PO DAILY 04/29/17 11/30/19 History Rivaroxaban [Xarelto] 15 mg PO DAILY 04/29/17 11/30/19 History amLODIPine [Norvasc] 10 mg PO DAILY 04/29/17 11/30/19 History Memantine [Namenda] 10 mg PO BID 11/30/19 11/30/19 History Sertraline [Zoloft] 50 mg PO DAILY 11/30/19 11/30/19 History Allergies Allergy/AdvReac Type Severity Reaction Status Date / Time No Known Allergies Allergy Verified 11/30/19 23:28 Physical Exam Vitals: Vital Signs Temp Pulse Pulse Resp BP Pulse Ox 12/02/19 15:59 89 22 12/02/19 13:29 78 12/02/19 13:17 76 12/02/19 12:00 98.0 F 89 24 120/66 95 12/02/19 09:26 80 12/02/19 09:17 84 12/02/19 08:00 98.8 F 81 24 124/63 97 12/02/19 04:00 91 24 12/02/19 01:03 80 12/02/19 00:46 80 12/02/19 00:00 91 24 145/83 91 L 12/01/19 23:43 81 20 12/01/19 20:00 97.6 F 81 20 133/62 93 L 12/01/19 17:59 86 12/01/19 17:49 83 Intake and Output 12/02/19 12/02/19 12/02/19 06:59 14:59 22:59 Intake Total 300 Balance 300 Intake: Oral 300 Other: Voiding Method Diaper Diaper Diaper # Voids 1 1 # Bowel Movements 1 1 Weight 70 kg - Constitutional General appearance: average body habitus, cooperative, disheveled, mild distress - EENT Eyes: EOMI, PERRLA, normal appearance ENT: normal oropharynx Ears: bilateral: normal - Neck Carotids: bilateral: upstroke normal Thyroid: bilateral: normal size - Respiratory Respiratory: bilateral: rales, rhonchi, wheezing, negative: CTA, diminished, dullness - Cardiovascular Rhythm: irregularly irregular Heart sounds: normal: S1, S2 - Gastrointestinal General gastrointestinal: normal bowel sounds, soft - Neurologic Neurologic: CNII-XII intact - Musculoskeletal Musculoskeletal: gait normal, generalized weakness, strength equal bilaterally - Psychiatric Psychiatric: appropriate affect, intact judgment & insight Results - Laboratory Findings CBC and BMP: 12/02/19 06:39 12/02/19 06:39 PT/INR, D-dimer PT 10.2 sec (9.0-12.0) 11/30/19 22:04 INR 1.0 (<1.2) 11/30/19 22:04 Abnormal lab findings: Abnormal Labs 11/30/19 11/30/19 11/30/19 22:04 22:04 22:04 RBC Hgb Hct RDW 15.6 H Neutrophils # 8.1 H Lymphocytes # 0.3 L APTT Chloride BUN 24 H Creatinine 1.82 H Glucose 215 H Plasma Lactic Acid Adalid 2.8 H* Calcium Alkaline Phosphatase 129 H Troponin I Urine Appearance Urine Protein Ur Leukocyte Esterase Urine WBC Amorphous Sediment Urine Bacteria Hyaline Casts Urine Mucus Influenza Type A RNA 11/30/19 11/30/19 11/30/19 22:04 22:04 22:04 RBC Hgb Hct RDW Neutrophils # Lymphocytes # APTT 21.5 L Chloride BUN Creatinine Glucose Plasma Lactic Acid Adalid Calcium Alkaline Phosphatase Troponin I Urine Appearance Cloudy H Urine Protein Trace H Ur Leukocyte Esterase Moderate H Urine WBC 15 H Amorphous Sediment Rare H Urine Bacteria Occasional H Hyaline Casts 29 H Urine Mucus Occasional H Influenza Type A RNA Detected H 12/01/19 12/01/19 12/02/19 10:29 21:48 06:39 RBC 3.32 L Hgb 8.6 L D Hct 27.5 L RDW 15.9 H Neutrophils # Lymphocytes # APTT Chloride 109 H BUN Creatinine 1.23 H Glucose 106 H Plasma Lactic Acid Adalid Calcium 8.1 L Alkaline Phosphatase Troponin I 0.038 H* Urine Appearance Urine Protein Ur Leukocyte Esterase Urine WBC Amorphous Sediment Urine Bacteria Hyaline Casts Urine Mucus Influenza Type A RNA 12/02/19 06:39 RBC Hgb Hct RDW Neutrophils # Lymphocytes # APTT Chloride 113 H BUN Creatinine 1.30 H Glucose Plasma Lactic Acid Adalid Calcium 8.1 L Alkaline Phosphatase Troponin I Urine Appearance Urine Protein Ur Leukocyte Esterase Urine WBC Amorphous Sediment Urine Bacteria Hyaline Casts Urine Mucus Influenza Type A RNA - Diagnostic Findings Chest x-ray: report reviewed, image reviewed (Chest x-ray unremarkable) Assessment and Plan Assessment: Influenza A pneumonia Acute on chronic respiratory failure due to multifactorial processes including influenza A pneumonia, sepsis, acute on chronic systolic heart failure Altered mental status confusion Sepsis secondary due to number influenza A pneumonia as well as urinary tract infection A. fib with RVR Acute on chronic systolic heart failure UTI Plan: Agree with Katja We'll cut down the IV fluids to 50 mL an hour Continue bronchodilator IV antibiotics with Rocephin Lasix 1 Time with Patient: Greater than 30
[2019-12-02] MEDS: FUROSEMIDE 10 MG/ML 2 ML VIAL IV SCH (16:59)
[2019-12-02] MEDS: DONEPEZIL 10 MG TAB PO SCH (21:21)
[2019-12-02] MEDS: MEMANTINE 5 MG TAB PO SCH (21:22)
--- NOTE | 2019-12-02 23:26 | P.PN ---
Subjective Progress Note Date: 12/02/19 Principal diagnosis: Acute influenza infection Persistent A. fib with RVR This is a pleasant 84-year-old patient of Dr. jules. Chronic stable medical conditions include COPD, dementia, hypertension, osteoarthritis, hypothyroid,. Patient visits her son and [id number]. Normally uses a walker. He is digital marketing assistant with some activities. Patient was noted to have a cough tired and became less active the course of 24 hours. We'll rundown congested chest. In the ER was noted to have a low-grade fever. Also found to be A. fib with rapid ventricular rate became more short of breath and ear. The problem BiPAP. Also put on a Cardizem drip for the A. fib. Really tired not able to give herself much of her history. INVESTIGATIONS, reviewed in the clinical context: White count 9 hemoglobin 11.7 potassium 4.5 BUN 24 creatinine 1.8 to peptic acid 2.8 Troponin I 0.018, 0.0-5 UA positive for leukoesterase, bacteria hyaline casts Influenza type A RNA positive EKG tracing personally reviewed by -Rj ayala with a rate around 130s Chest x-ray film personally reviewed by me-possible basal infiltrate 12/02/2019 Patient is currently lying in the bed comfortably. Confused and disoriented due to underlying dementia. Breathing status is improving. Patient is being qasim nued on Tamiflu and and antibiotics. Pulmonary is following. Heart rate is controlled. Cardizem drip has been discontinued. Cardiology has seen the patient. 2-D echocardiogram was done. Ejection fraction 45-50%. Currently off BiPAP. Patient is also on some IV Lasix. Monitor renal function. Patient has been afebrile. No nausea vomiting or abdominal pain. No diarrhea. Discussed with the family at bedside in detail. Current medications reviewed. Objective - Vital Signs Vital signs: Vital Signs Temp 98.0 F 12/02/19 12:00 Pulse 89 12/02/19 15:59 Resp 22 12/02/19 15:59 BP 120/66 12/02/19 12:00 Pulse Ox 95 12/02/19 12:00 Intake & Output 12/01/19 12/02/19 12/02/19 18:59 06:59 18:59 Intake Total 117.75 650 300 Balance 117.75 650 300 Weight 63.503 kg 70 kg Intake: Intake, IV Titration 117.75 Amount Diltiazem 125 mg In 117.75 Sodium Chloride 0.9% 100 ml @ 5 MG/HR 5 mls/hr IV .Q24H [facility] Rx#:[id number] Oral 300 Tube Feeding 650 Other: Voiding Method Diaper Diaper Diaper # Voids 1 1 # Bowel Movements 1 1 - Exam GENERAL: BMI 28.3, laying in bed tired short of breath a bit lethargic. On BiPAP EYES: Pupils equal. Conjunctiva normal. HEENT: External appearance of nose and ears normal, oral cavity grossly normal. NECK: JVD unable to assess; masses not palpable. HEART: Heart sounds irregular no edema. LUNGS: Respiratory rate increased, decreased breaths on increased expiration. ABDOMEN: Soft, nontender, liver spleen not palpable, no masses palpable. PSYCH: [Lethargic tired NEUROLOGICAL: Cranial nerves grossly intact; no facial asymmetry, underlying dementia. power and sensation grossly intact. LYMPHATICS: No lymph nodes palpable in the axilla and neck - Labs CBC & Chem 7: 12/02/19 06:39 12/02/19 06:39 Labs: Abnormal Lab Results - Last 24 Hours (Table) 12/01/19 12/02/19 12/02/19 Range/Units 21:48 06:39 06:39 RBC 3.32 L (3.80-5.40) m/uL Hgb 8.6 L D (11.4-16.0) gm/dL Hct 27.5 L (34.0-46.0) % RDW 15.9 H (11.5-15.5) % Chloride 109 H 113 H (98-107) mmol/L Creatinine 1.23 H 1.30 H (0.52-1.04) mg/dL Glucose 106 H (74-99) mg/dL Calcium 8.1 L 8.1 L (8.4-10.2) mg/dL Microbiology - Last 24 Hours (Table) 11/30/19 22:04 Urine Culture - Preliminary Urine,Clean Catch Gram Neg Bacilli 11/30/19 22:04 Blood Culture - Preliminary Blood No Growth after 24 hours Assessment and Plan Assessment: -Acute influenza A pneumonitis, cannot rule out secondary bacterial infection, causing sepsis POA -Persistent atrial fibrillation with a rapid ventricular rate, chronically on xarelto -Troponin leak likely from uncontrolled A. fib doubt acute coronary syndrome -Acute hypoxic respiratory failure patient requiring BiPAP use this morning -Major cognitive impairment probably from late onset Alzheimer's dementia -Gait dysfunction uses a walker -Possible UTI -Kidney injury, acute versus chronic or both -Acute metabolic encephalopathy, multifactorial -Acute COPD exacerbation in an ex-smoker -Essential hypertension -Primary osteoarthritis -Hypothyroid Plan: Patient was initially placed on BiPAP. Currently oxygenating well on nasal cannula oxygen. DuoNeb's, Tamiflu. Give IV fluids. Recheck renal function. inhaled steroids. was given Solu-Medrol. off Cardizem drip and patient was started on metoprolol. Cardiology has seen the patient. Continue with anticoagulation with xarelto. Continue family the bedside. Prognosis guarded. Time with Patient: Greater than 30
[2019-12-03] MEDS: LEVOTHYROXINE 88 MCG TAB PO SCH (05:52)
[2019-12-03] MEDS: ALBUTEROL NEBULIZED 2.5 MG/3 ML INHALATION SCH ×3 (07:25→19:19)
[2019-12-03 07:49] LABS: Anisocytosis Slight; Basophils # (A) 0.1 k/uL (0-0.2); Basophils % (A) 2 %; Eosinophils # (A) 0.1 k/uL (0-0.7); Eosinophils % (A) 1 %; HCT 33.2 % (34.0-46.0); HGB 10.1 gm/dL (11.4-16.0); Hypochromasia Moderate; Lymphocytes # (A) 0.9 k/uL (1.0-4.8); Lymphocytes % (A) 20 %; MCH 25.3 pg (25.0-35.0); MCHC 30.6 g/dL (31.0-37.0); MCV 82.8 fL (80.0-100.0); Mean Platelet Volume 9.1; Monocytes # (A) 0.4 k/uL (0-1.0); Monocytes % (A) 9 %; Neutrophils # (A) 3.1 k/uL (1.3-7.7); Neutrophils % (A) 66 %; Platelet Count 213 k/uL (150-450); RBC 4.01 m/uL (3.80-5.40); RDW 16.2 % (11.5-15.5); WBC 4.7 k/uL (3.8-10.6)
[2019-12-03 08:09] LABS: Calcium 8.4 mg/dL (8.4-10.2); Potassium 3.8 mmol/L (3.5-5.1)
[2019-12-03] MEDS: FUROSEMIDE 10 MG/ML 2 ML VIAL IV SCH (10:07)
[2019-12-03] MEDS: SERTRALINE 50 MG TAB PO SCH (10:08)
[2019-12-03] MEDS: PANTOPRAZOLE 40 MG TABLET PO SCH (10:08)
[2019-12-03] MEDS: METOPROLOL TARTRATE 25 MG TAB PO SCH ×2 (10:08→20:32)
[2019-12-03] MEDS: amLODIPine 10 MG TAB PO SCH (10:08)
[2019-12-03] MEDS: RIVAROXABAN 15 MG TAB PO SCH (10:59)
[2019-12-03] MEDS: MEMANTINE 5 MG TAB PO SCH ×2 (10:59→20:32)
[2019-12-03] MEDS: OSELTAMIVIR 60 MG/10 ML ORAL SYRINGE PO SCH (10:59)
[2019-12-03] MEDS: SODIUM CHLORIDE 0.9% 1,000 ML IV SCH (12:32)
[2019-12-03] MEDS: DONEPEZIL 10 MG TAB PO SCH (20:32)
[2019-12-03] MEDS ORDERED: ALBUTEROL NEBULIZED 2.5 MG/3 ML INHALATION PRN (21:24)
[2019-12-04] MEDS: LEVOTHYROXINE 88 MCG TAB PO SCH (06:04)
[2019-12-04] MEDS: ALBUTEROL NEBULIZED 2.5 MG/3 ML INHALATION SCH ×4 (08:50→21:07)
[2019-12-04] MEDS: amLODIPine 10 MG TAB PO SCH (09:19)
[2019-12-04] MEDS: SERTRALINE 50 MG TAB PO SCH (09:19)
[2019-12-04] MEDS: OSELTAMIVIR 60 MG/10 ML ORAL SYRINGE PO SCH (09:19)
[2019-12-04] MEDS: PANTOPRAZOLE 40 MG TABLET PO SCH (09:19)
[2019-12-04] MEDS: METOPROLOL TARTRATE 25 MG TAB PO SCH ×2 (09:19→20:24)
[2019-12-04] MEDS: MEMANTINE 5 MG TAB PO SCH ×2 (09:20→20:24)
[2019-12-04] MEDS: RIVAROXABAN 15 MG TAB PO SCH (09:20)
--- NOTE | 2019-12-04 10:19 | P.PN ---
Subjective Progress Note Date: 12/03/19 Principal diagnosis: Influenza A pneumonia Acute on chronic respiratory failure due to multifactorial processes including influenza A pneumonia, sepsis, acute on chronic systolic heart failure Altered mental status confusion Sepsis secondary due to number influenza A pneumonia as well as urinary tract infection A. fib with RVR Acute on chronic systolic heart failure 12/03/2019, patient seen eval examined during the rounds is still have ongoing shortness of breath cough and symptoms slightly better denies any sputum production shortness of breath slightly improved labs reviewed medications reviewed This is a 84-year-old female who was seen evaluated examined on third floor patient presented into the emergency department with increased symptoms of shortness of breath and generalized aches and pain patient has been found to positive for influenza as well, patient has been on A. fib with rapid ventricular response has been admitted to the hospital initially she was placed on BiPAP and Cardizem drip, subsequently changed to nasal cannula currently on 2 L oxygen, BiPAP has been discontinued, echocardiogram revealed ejection fraction of 45%, not much data obtained from the patient she is pleasantly confused Objective - Vital Signs Vital signs: Vital Signs Temp 97.6 F 12/03/19 20:51 Pulse 75 12/03/19 20:51 Resp 16 12/03/19 20:51 BP 107/79 12/03/19 20:51 Pulse Ox 96 12/03/19 20:51 Intake & Output 12/03/19 12/03/19 12/04/19 06:59 18:59 06:59 Intake Total 590 650 480 Output Total 1 Balance 590 649 480 Intake: Intake, IV Titration 100 Amount cefTRIAXone 1 gm In 100 Sodium Chloride 0.9% 50 ml @ 100 mls/hr IVPB Q24HR [facility] Rx#:[id number] Oral 590 550 480 Output: Stool 1 Other: Voiding Method Diaper Toilet Diaper # Voids 2 2 - Exam - Constitutional General appearance: average body habitus, cooperative, disheveled, mild distress - EENT Eyes: EOMI, PERRLA, normal appearance ENT: normal oropharynx Ears: bilateral: normal - Neck Carotids: bilateral: upstroke normal Thyroid: bilateral: normal size - Respiratory Respiratory: bilateral: rales, rhonchi, wheezing, negative: CTA, diminished, dullness - Cardiovascular Rhythm: irregularly irregular Heart sounds: normal: S1, S2 - Gastrointestinal General gastrointestinal: normal bowel sounds, soft - Neurologic Neurologic: CNII-XII intact - Musculoskeletal Musculoskeletal: gait normal, generalized weakness, strength equal bilaterally - Psychiatric Psychiatric: appropriate affect, intact judgment & insight - Labs CBC & Chem 7: 12/03/19 06:54 12/03/19 06:54 Labs: Abnormal Lab Results - Last 24 Hours (Table) 12/03/19 12/03/19 Range/Units 06:54 06:54 Hgb 10.1 L (11.4-16.0) gm/dL Hct 33.2 L (34.0-46.0) % MCHC 30.6 L (31.0-37.0) g/dL RDW 16.2 H (11.5-15.5) % Lymphocytes # 0.9 L (1.0-4.8) k/uL BUN 28 H (7-17) mg/dL Creatinine 1.41 H (0.52-1.04) mg/dL Microbiology - Last 24 Hours (Table) 11/30/19 22:04 Urine Culture - Final Urine,Clean Catch Escherichia coli 11/30/19 22:04 Blood Culture - Preliminary Blood No Growth after 48 hours Assessment and Plan Assessment: Influenza A pneumonia Acute on chronic respiratory failure due to multifactorial processes including influenza A pneumonia, sepsis, acute on chronic systolic heart failure Altered mental status confusion Sepsis secondary due to number influenza A pneumonia as well as urinary tract infection A. fib with RVR Acute on chronic systolic heart failure UTI Plan: Agree with Katja We'll cut down the IV fluids to 50 mL an hour Continue bronchodilator IV antibiotics with Rocephin Lasix 1 Time with Patient: Greater than 30
--- NOTE | 2019-12-04 10:22 | P.PN ---
Subjective Progress Note Date: 12/04/19 Principal diagnosis: Influenza A pneumonia Acute on chronic respiratory failure due to multifactorial processes including influenza A pneumonia, sepsis, acute on chronic systolic heart failure Altered mental status confusion Sepsis secondary due to number influenza A pneumonia as well as urinary tract infection A. fib with RVR Acute on chronic systolic heart failure 12/04/2019, patient seen and evaluated examined during the rounds labs reviewed medications reviewed urine culture is positive for E. coli not ESBL, blood cultures are negative, last chest x-ray on December 01 remained stable respiratory status continued to improve slowly labs reviewed medications review ed 12/03/2019, patient seen eval examined during the rounds is still have ongoing shortness of breath cough and symptoms slightly better denies any sputum production shortness of breath slightly improved labs reviewed medications reviewed This is a 84-year-old female who was seen evaluated examined on third floor patient presented into the emergency department with increased symptoms of shortness of breath and generalized aches and pain patient has been found to positive for influenza as well, patient has been on A. fib with rapid ventricular response has been admitted to the hospital initially she was placed on BiPAP and Cardizem drip, subsequently changed to nasal cannula currently on 2 L oxygen, BiPAP has been discontinued, echocardiogram revealed ejection fraction of 45%, not much data obtained from the patient she is pleasantly confused Objective - Vital Signs Vital signs: Vital Signs Temp 97.3 F L 12/04/19 05:00 Pulse 93 12/04/19 05:00 Resp 16 12/04/19 05:00 BP 105/65 12/04/19 05:00 Pulse Ox 91 L 12/04/19 05:00 Intake & Output 12/03/19 12/04/19 12/04/19 18:59 06:59 18:59 Intake Total 650 1430 Output Total 1 1 Balance 649 1429 Intake: Intake, IV Titration 100 Amount cefTRIAXone 1 gm In 100 Sodium Chloride 0.9% 50 ml @ 100 mls/hr IVPB Q24HR [facility] Rx#:[id number] Oral 550 1430 Output: Stool 1 1 Other: Voiding Method Toilet Toilet Diaper Diaper # Voids 2 2 - Exam - Constitutional General appearance: average body habitus, cooperative, disheveled, mild distress - EENT Eyes: EOMI, PERRLA, normal appearance ENT: normal oropharynx Ears: bilateral: normal - Neck Carotids: bilateral: upstroke normal Thyroid: bilateral: normal size - Respiratory Respiratory: bilateral: rales, rhonchi, wheezing, negative: CTA, diminished, dullness - Cardiovascular Rhythm: irregularly irregular Heart sounds: normal: S1, S2 - Gastrointestinal General gastrointestinal: normal bowel sounds, soft - Neurologic Neurologic: CNII-XII intact - Musculoskeletal Musculoskeletal: gait normal, generalized weakness, strength equal bilaterally - Psychiatric Psychiatric: appropriate affect, intact judgment & insight - Labs CBC & Chem 7: 12/03/19 06:54 12/03/19 06:54 Labs: Microbiology - Last 24 Hours (Table) 11/30/19 22:04 Blood Culture - Preliminary Blood No Growth after 72 hours 11/30/19 22:04 Urine Culture - Final Urine,Clean Catch Escherichia coli Assessment and Plan Assessment: Influenza A pneumonia Acute on chronic respiratory failure due to multifactorial processes including influenza A pneumonia, sepsis, acute on chronic systolic heart failure Altered mental status confusion Sepsis secondary due to number influenza A pneumonia as well as urinary tract infection A. fib with RVR Acute on chronic systolic heart failure UTI due to E. coli Plan: Agree with Katja We'll cut down the IV fluids to 50 mL an hour Continue bronchodilator IV antibiotics with Rocephin Lasix 1
[2019-12-04] MEDS: FUROSEMIDE 10 MG/ML 2 ML VIAL IV SCH (10:25)
[2019-12-04] MEDS: SODIUM CHLORIDE 0.9% 1,000 ML IV SCH (11:40)
[2019-12-04] MEDS: FUROSEMIDE 20 MG TAB PO SCH (13:54)
[2019-12-04] MEDS: DONEPEZIL 10 MG TAB PO SCH (20:23)
[2019-12-05] MEDS: LEVOTHYROXINE 88 MCG TAB PO SCH (06:05)
[2019-12-05] MEDS: ALBUTEROL NEBULIZED 2.5 MG/3 ML INHALATION SCH ×4 (08:31→20:44)
[2019-12-05] MEDS: FUROSEMIDE 20 MG TAB PO SCH (09:42)
[2019-12-05] MEDS: amLODIPine 10 MG TAB PO SCH (09:42)
[2019-12-05] MEDS: ACETAMINOPHEN TAB 325 MG TAB PO PRN (09:43)
[2019-12-05] MEDS: SERTRALINE 50 MG TAB PO SCH (09:43)
[2019-12-05] MEDS: PANTOPRAZOLE 40 MG TABLET PO SCH (09:44)
[2019-12-05] MEDS: METOPROLOL TARTRATE 25 MG TAB PO SCH ×2 (09:45→21:13)
[2019-12-05] MEDS: MEMANTINE 5 MG TAB PO SCH ×2 (10:57→21:14)
[2019-12-05] MEDS: RIVAROXABAN 15 MG TAB PO SCH (10:57)
[2019-12-05] MEDS: DONEPEZIL 10 MG TAB PO SCH (21:13)
--- NOTE | 2019-12-05 23:42 | P.PN ---
Subjective Progress Note Date: 12/03/19 Principal diagnosis: Acute influenza infection Persistent A. fib with RVR This is a pleasant 84-year-old patient of Dr. jules. Chronic stable medical conditions include COPD, dementia, hypertension, osteoarthritis, hypothyroid,. Patient visits her son and [id number]. Normally uses a walker. He is logistics assistant with some activities. Patient was noted to have a cough tired and became less active the course of 24 hours. We'll rundown congested chest. In the ER was noted to have a low-grade fever. Also found to be A. fib with rapid ventricular rate became more short of breath and ear. The problem BiPAP. Also put on a Cardizem drip for the A. fib. Really tired not able to give herself much of her history. INVESTIGATIONS, reviewed in the clinical context: White count 9 hemoglobin 11.7 potassium 4.5 BUN 24 creatinine 1.8 to peptic acid 2.8 Troponin I 0.018, 0.0-5 UA positive for leukoesterase, bacteria hyaline casts Influenza type A RNA positive EKG tracing personally reviewed by -Rj ayala with a rate around 130s Chest x-ray film personally reviewed by me-possible basal infiltrate 12/02/2019 Patient is currently lying in the bed comfortably. Confused and disoriented due to underlying dementia. Breathing status is improving. Patient is being qasim nued on Tamiflu and and antibiotics. Pulmonary is following. Heart rate is controlled. Cardizem drip has been discontinued. Cardiology has seen the patient. 2-D echocardiogram was done. Ejection fraction 45-50%. Currently off BiPAP. Patient is also on some IV Lasix. Monitor renal function. Patient has been afebrile. No nausea vomiting or abdominal pain. No diarrhea. Discussed with the family at bedside in detail. 12/03/2019 Patient is currently lying in the bed comfortably. Breathing status is improving. Heart rate is controlled. Lasix changed to by mouth. Patient is being continued on Tamiflu. Hemodynamically stable. Patient is being transferred to general medical floor today. Patient is a poor historian due to underlying dementia along with possible delirium. Current medications reviewed. Objective - Vital Signs Vital signs: Vital Signs Temp 97.6 F 12/03/19 20:51 Pulse 75 12/03/19 20:51 Resp 16 12/03/19 20:51 BP 107/79 12/03/19 20:51 Pulse Ox 96 12/03/19 20:51 Intake & Output 12/03/19 12/03/19 12/04/19 06:59 18:59 06:59 Intake Total 590 650 480 Output Total 1 Balance 590 649 480 Intake: Intake, IV Titration 100 Amount cefTRIAXone 1 gm In 100 Sodium Chloride 0.9% 50 ml @ 100 mls/hr IVPB Q24HR [facility] Rx#:[id number] Oral 590 550 480 Output: Stool 1 Other: Voiding Method Diaper Toilet Diaper # Voids 2 2 - Exam PHYSICAL EXAMINATION: Patient is lying in the bed comfortably, no acute distress, awake alert but disoriented. Delirious. HEENT: Normocephalic. Neck is supple. Pupils reactive. Nostrils clear. Oral cavity is moist. Ears reveal no drainage. Neck reveals no JVD, carotid bruits, or thyromegaly. CHEST EXAMINATION: Trachea is central. Symmetrical expansion. Bibasilar diminished air entry. Scattered rhonchi. Lung sarmiento clear to auscultation and percussion. CARDIAC: Normal S1, S2 with no gallops. No murmurs ABDOMEN: Soft. Bowel sounds normal. No organomegaly. No abdominal bruits. Extremities: reveal no edema. No clubbing or cyanosis Neurologically awake, alert but not oriented . No gross focal deficits noted Skin: No rash or skin lesions. Psychiatric: Noncooperative Musculoskeletal: No joint swelling or deformity. Normal range of motion. - Labs CBC & Chem 7: 12/03/19 06:54 12/03/19 06:54 Labs: Abnormal Lab Results - Last 24 Hours (Table) 12/03/19 12/03/19 Range/Units 06:54 06:54 Hgb 10.1 L (11.4-16.0) gm/dL Hct 33.2 L (34.0-46.0) % MCHC 30.6 L (31.0-37.0) g/dL RDW 16.2 H (11.5-15.5) % Lymphocytes # 0.9 L (1.0-4.8) k/uL BUN 28 H (7-17) mg/dL Creatinine 1.41 H (0.52-1.04) mg/dL Microbiology - Last 24 Hours (Table) 11/30/19 22:04 Urine Culture - Final Urine,Clean Catch Escherichia coli 11/30/19 22:04 Blood Culture - Preliminary Blood No Growth after 48 hours Assessment and Plan Assessment: -Acute influenza A pneumonitis, cannot rule out secondary bacterial infection, causing sepsis POA -Persistent atrial fibrillation with a rapid ventricular rate, chronically on xarelto -Troponin leak likely from uncontrolled A. fib doubt acute coronary syndrome -Acute hypoxic respiratory failure patient requiring BiPAP use this morning -Major cognitive impairment probably from late onset Alzheimer's dementia -Gait dysfunction uses a walker -Possible UTI -Kidney injury, acute versus chronic or both -Acute metabolic encephalopathy, multifactorial -Acute COPD exacerbation in an ex-smoker -Essential hypertension -Primary osteoarthritis -Hypothyroid Plan: Patient was initially placed on BiPAP. Currently oxygenating well on nasal cannula oxygen. DuoNeb's, Tamiflu. Give IV fluids. Recheck renal function. inhaled steroids. was given Solu-Medrol. Currently off steroids. off Cardizem drip and patient was started on metoprolol. Cardiology has seen the patient. Continue with anticoagulation with xarelto. Continue family the bedside. Prognosis guarded. Time with Patient: Greater than 30
--- NOTE | 2019-12-05 23:47 | P.PN ---
Subjective Progress Note Date: 12/04/19 Principal diagnosis: Acute influenza infection Persistent A. fib with RVR This is a pleasant 84-year-old patient of Dr. jules. Chronic stable medical conditions include COPD, dementia, hypertension, osteoarthritis, hypothyroid,. Patient visits her son and [id number]. Normally uses a walker. He is personal assistant with some activities. Patient was noted to have a cough tired and became less active the course of 24 hours. We'll rundown congested chest. In the ER was noted to have a low-grade fever. Also found to be A. fib with rapid ventricular rate became more short of breath and ear. The problem BiPAP. Also put on a Cardizem drip for the A. fib. Really tired not able to give herself much of her history. INVESTIGATIONS, reviewed in the clinical context: White count 9 hemoglobin 11.7 potassium 4.5 BUN 24 creatinine 1.8 to peptic acid 2.8 Troponin I 0.018, 0.0-5 UA positive for leukoesterase, bacteria hyaline casts Influenza type A RNA positive EKG tracing personally reviewed by me-Rj ayala with a rate around 130s Chest x-ray film personally reviewed by me-possible basal infiltrate 12/02/2019 Patient is currently lying in the bed comfortably. Confused and disoriented due to underlying dementia. Breathing status is improving. Patient is being qasim nued on Tamiflu and and antibiotics. Pulmonary is following. Heart rate is controlled. Cardizem drip has been discontinued. Cardiology has seen the patient. 2-D echocardiogram was done. Ejection fraction 45-50%. Currently off BiPAP. Patient is also on some IV Lasix. Monitor renal function. Patient has been afebrile. No nausea vomiting or abdominal pain. No diarrhea. Discussed with the family at bedside in detail. 12/03/2019 Patient is currently lying in the bed comfortably. Breathing status is improving. Heart rate is controlled. Lasix changed to by mouth. Patient is being continued on Tamiflu. Hemodynamically stable. Patient is being transferred to general medical floor today. Patient is a poor historian due to underlying dementia along with possible delirium. 12/04/2019 Patient is currently lying in the bed comfortably. Awake alert but not oriented. Seems delirious. Patient did rule out for IV line and refusing to take medications. Currently patient is saturating well on room air. No fever or chills or night. No chest pain or shortness of breath. Continued on breathing treatments and completed Tamiflu course. Urine cultures positive for E. coli. Blood cultures have been negative so far Patient will be continued on ceftriaxone. Current medications reviewed. Objective - Vital Signs Vital signs: Vital Signs Temp 98.2 F 12/04/19 12:26 Pulse 84 12/04/19 21:18 Resp 20 12/04/19 21:07 BP 113/63 12/04/19 12:26 Pulse Ox 93 L 12/04/19 16:23 Intake & Output 12/04/19 12/04/19 12/05/19 06:59 18:59 06:59 Intake Total 1430 550 Output Total 1 Balance 1429 550 Intake: Oral 1430 550 Output: Stool 1 Other: Voiding Method Toilet Toilet Diaper Diaper # Voids 2 2 - Exam PHYSICAL EXAMINATION: Patient is lying in the bed comfortably, no acute distress, awake alert but disoriented. Delirious. HEENT: Normocephalic. Neck is supple. Pupils reactive. Nostrils clear. Oral cavity is moist. Ears reveal no drainage. Neck reveals no JVD, carotid bruits, or thyromegaly. CHEST EXAMINATION: Trachea is central. Symmetrical expansion. Bibasilar diminished air entry. No wheezing or rhonchi. Lung sarmiento clear to auscultation and percussion. CARDIAC: Normal S1, S2 with no gallops. No murmurs ABDOMEN: Soft. Bowel sounds normal. No organomegaly. No abdominal bruits. Extremities: reveal no edema. No clubbing or cyanosis Neurologically awake, alert but not oriented . No gross focal deficits noted Skin: No rash or skin lesions. Psychiatric: Noncooperative Musculoskeletal: No joint swelling or deformity. Normal range of motion. - Labs CBC & Chem 7: 12/03/19 06:54 12/03/19 06:54 Labs: Microbiology - Last 24 Hours (Table) 11/30/19 22:04 Blood Culture - Preliminary Blood No Growth after 72 hours Assessment and Plan Assessment: -Acute influenza A pneumonitis, cannot rule out secondary bacterial infection, causing sepsis POA -E. coli urinary tract infection -Persistent atrial fibrillation with a rapid ventricular rate, chronically on xarelto -Troponin leak likely from uncontrolled A. fib doubt acute coronary syndrome -Acute hypoxic respiratory failure patient requiring BiPAP initially. -Major cognitive impairment probably from late onset Alzheimer's dementia -Gait dysfunction uses a walker -Kidney injury, acute versus chronic or both -Acute metabolic encephalopathy, multifactorial -Acute COPD exacerbation in an ex-smoker. Improved -Essential hypertension -Primary osteoarthritis -Hypothyroid Plan: Patient was initially placed on BiPAP. Currently oxygenating well on nasal cannula oxygen. DuoNeb's, Tamiflu. Give IV fluids. Recheck renal function. inhaled steroids. was given Solu-Medrol. Currently off steroids. off Cardizem drip and patient was started on metoprolol. Cardiology has seen the patient. Continue with anticoagulation with xarelto. Continue family the bedside. Prognosis guarded. Time with Patient: Greater than 30
--- NOTE | 2019-12-05 23:50 | P.PN ---
Subjective Progress Note Date: 12/05/19 Principal diagnosis: Acute influenza infection Persistent A. fib with RVR This is a pleasant 84-year-old patient of Dr. jules. Chronic stable medical conditions include COPD, dementia, hypertension, osteoarthritis, hypothyroid,. Patient visits her son and [id number]. Normally uses a walker. He is commercial escrow assistant with some activities. Patient was noted to have a cough tired and became less active the course of 24 hours. We'll rundown congested chest. In the ER was noted to have a low-grade fever. Also found to be A. fib with rapid ventricular rate became more short of breath and ear. The problem BiPAP. Also put on a Cardizem drip for the A. fib. Really tired not able to give herself much of her history. INVESTIGATIONS, reviewed in the clinical context: White count 9 hemoglobin 11.7 potassium 4.5 BUN 24 creatinine 1.8 to peptic acid 2.8 Troponin I 0.018, 0.0-5 UA positive for leukoesterase, bacteria hyaline casts Influenza type A RNA positive EKG tracing personally reviewed by me-Rj ayala with a rate around 130s Chest x-ray film personally reviewed by me-possible basal infiltrate 12/02/2019 Patient is currently lying in the bed comfortably. Confused and disoriented due to underlying dementia. Breathing status is improving. Patient is being qasim nued on Tamiflu and and antibiotics. Pulmonary is following. Heart rate is controlled. Cardizem drip has been discontinued. Cardiology has seen the patient. 2-D echocardiogram was done. Ejection fraction 45-50%. Currently off BiPAP. Patient is also on some IV Lasix. Monitor renal function. Patient has been afebrile. No nausea vomiting or abdominal pain. No diarrhea. Discussed with the family at bedside in detail. 12/03/2019 Patient is currently lying in the bed comfortably. Breathing status is improving. Heart rate is controlled. Lasix changed to by mouth. Patient is being continued on Tamiflu. Hemodynamically stable. Patient is being transferred to general medical floor today. Patient is a poor historian due to underlying dementia along with possible delirium. 12/04/2019 Patient is currently lying in the bed comfortably. Awake alert but not oriented. Seems delirious. Patient did rule out for IV line and refusing to take medications. Currently patient is saturating well on room air. No fever or chills or night. No chest pain or shortness of breath. Continued on breathing treatments and completed Tamiflu course. Urine cultures positive for E. coli. Blood cultures have been negative so far Patient will be continued on ceftriaxone. 12/05/2019 Patient is currently sitting in the chair comfortably. But delirious and noncooperative. Patient pulled out IV line yesterday. Antibiotics will be changed to by mouth. patient has been afebrile. Currently saturating well on 94% on room air. Patient is being continued on DuoNeb's and cardiac medications including anticoagulation. Patient is not eating very well and refusing IV fluids. Monitor closely and anticipate discharged to extended care facility for next 24- 48 hours. Current medications reviewed. Objective - Vital Signs Vital signs: Vital Signs Temp 98.2 F 12/05/19 13:00 Pulse 89 12/05/19 13:00 Resp 17 12/05/19 13:00 BP 109/74 12/05/19 13:00 Pulse Ox 94 L 12/05/19 13:00 Intake & Output 12/04/19 12/05/19 12/05/19 18:59 06:59 18:59 Intake Total 802 043 7067 Output Total 1 Balance 630 036 9090 Intake: Oral 476 956 1392 Output: Stool 1 Other: Voiding Method Toilet Toilet Toilet Diaper Diaper Diaper # Voids 2 2 1 # Bowel Movements 1 - Exam PHYSICAL EXAMINATION: Patient is lying in the bed comfortably, no acute distress, awake alert but disoriented. Delirious. HEENT: Normocephalic. Neck is supple. Pupils reactive. Nostrils clear. Oral cavity is moist. Ears reveal no drainage. Neck reveals no JVD, carotid bruits, or thyromegaly. CHEST EXAMINATION: Trachea is central. Symmetrical expansion. Bibasilar di minished air entry. No wheezing or rhonchi. Lung sarmiento clear to auscultation and percussion. CARDIAC: Normal S1, S2 with no gallops. No murmurs ABDOMEN: Soft. Bowel sounds normal. No organomegaly. No abdominal bruits. Extremities: reveal no edema. No clubbing or cyanosis Neurologically awake, alert but not oriented . No gross focal deficits noted Skin: No rash or skin lesions. Psychiatric: Noncooperative Musculoskeletal: No joint swelling or deformity. Normal range of motion. - Labs CBC & Chem 7: 12/03/19 06:54 12/03/19 06:54 Labs: Microbiology - Last 24 Hours (Table) 11/30/19 22:04 Blood Culture - Preliminary Blood No Growth after 96 hours Assessment and Plan Assessment: -Acute influenza A pneumonitis, cannot rule out secondary bacterial infection, causing sepsis POA -E. coli urinary tract infection -Persistent atrial fibrillation with a rapid ventricular rate, chronically on xarelto -Troponin leak likely from uncontrolled A. fib doubt acute coronary syndrome -Acute hypoxic respiratory failure patient requiring BiPAP initially. -Major cognitive impairment probably from late onset Alzheimer's dementia -Gait dysfunction uses a walker -Kidney injury, acute versus chronic or both -Acute metabolic encephalopathy, multifactorial -Acute COPD exacerbation in an ex-smoker. Improved -Essential hypertension -Primary osteoarthritis -Hypothyroid Plan: Patient was initially placed on BiPAP. Currently oxygenating well on nasal cannula oxygen. Completed Tamiflu. DuoNeb's. Give IV fluids. Recheck renal function. inhaled steroids. was given Solu-Medrol. Currently off steroids. off Cardizem drip and patient was started on metoprolol. Cardiology has seen the patient. Continue with anticoagulation with xarelto. Discussed with family the bedside. Prognosis guarded. Time with Patient: Greater than 30
--- NOTE | 2019-12-06 01:16 | P.PN ---
Subjective Progress Note Date: 12/05/19 Principal diagnosis: Influenza A pneumonia Acute on chronic respiratory failure due to multifactorial processes including influenza A pneumonia, sepsis, acute on chronic systolic heart failure Altered mental status confusion Sepsis secondary due to number influenza A pneumonia as well as urinary tract infection A. fib with RVR Acute on chronic systolic heart failure 12/05/2019, patient seen eval examined during the rounds labs reviewed medications reviewed still intermittent and shortness of breasts present but severity has improved, activity is been escalated patient is up on chair, antibiotics have been changed to oral, oxygen saturation 94% on room air 12/04/2019, patient seen and evaluated examined during the rounds labs reviewed medications reviewed urine culture is positive for E. coli not ESBL, blood cultures are negative, last chest x-ray on December 01 remained stable respiratory status continued to improve slowly labs reviewed medications reviewed 12/03/2019, patient seen eval examined during the rounds is still have ongoing shortness of breath cough and symptoms slightly better denies any sputum production shortness of breath slightly improved labs reviewed medications reviewed This is a 84-year-old female who was seen evaluated examined on third floor patient presented into the emergency department with increased symptoms of shortness of breath and generalized aches and pain patient has been found to positive for influenza as well, patient has been on A. fib with rapid ventricular response has been admitted to the hospital initially she was placed on BiPAP and Cardizem drip, subsequently changed to nasal cannula currently on 2 L oxygen, BiPAP has been discontinued, echocardiogram revealed ejection fraction of 45%, not much data obtained from the patient she is pleasantly confused Objective - Vital Signs Vital signs: Vital Signs Temp 98.6 F 12/05/19 21:00 Pulse 70 12/05/19 21:00 Resp 16 12/05/19 21:00 BP 112/57 12/05/19 21:00 Pulse Ox 93 L 12/05/19 21:00 Intake & Output 12/05/19 12/05/19 12/06/19 06:59 18:59 06:59 Intake Total 360 1300 590 Output Total 2 Balance 360 1298 590 Intake: Oral 360 1300 590 Output: Stool 2 Other: Voiding Method Toilet Toilet Toilet Diaper Diaper Diaper # Voids 2 1 1 # Bowel Movements 1 - Exam - Constitutional General appearance: average body habitus, cooperative, disheveled, mild distress - EENT Eyes: EOMI, PERRLA, normal appearance ENT: normal oropharynx Ears: bilateral: normal - Neck Carotids: bilateral: upstroke normal Thyroid: bilateral: normal size - Respiratory Respiratory: bilateral: rales, rhonchi, wheezing, negative: CTA, diminished, dullness - Cardiovascular Rhythm: irregularly irregular Heart sounds: normal: S1, S2 - Gastrointestinal General gastrointestinal: normal bowel sounds, soft - Neurologic Neurologic: CNII-XII intact - Musculoskeletal Musculoskeletal: gait normal, generalized weakness, strength equal bilaterally - Psychiatric Psychiatric: appropriate affect, intact judgment & insight - Labs CBC & Chem 7: 12/03/19 06:54 12/03/19 06:54 Labs: Microbiology - Last 24 Hours (Table) 11/30/19 22:04 Blood Culture - Preliminary Blood No Growth after 120 hours Assessment and Plan Assessment: Influenza A pneumonia Acute on chronic respiratory failure due to multifactorial processes including influenza A pneumonia, sepsis, acute on chronic systolic heart failure Altered mental status confusion Sepsis secondary due to number influenza A pneumonia as well as urinary tract infection A. fib with RVR Acute on chronic systolic heart failure UTI due to E. coli Plan: Agree with Katja We'll cut down the IV fluids to 50 mL an hour Continue bronchodilator IV antibiotics with Rocephin Lasix 1 Time with Patient: Greater than 30
[2019-12-06] MEDS: LEVOTHYROXINE 88 MCG TAB PO SCH (05:23)
[2019-12-06] MEDS: ALBUTEROL NEBULIZED 2.5 MG/3 ML INHALATION SCH ×4 (07:45→21:00)
[2019-12-06 08:24] LABS: HCT 33.3 % (34.0-46.0); HGB 10.4 gm/dL (11.4-16.0); Hypochromasia Moderate; MCH 25.4 pg (25.0-35.0); MCV 81.8 fL (80.0-100.0); Mean Platelet Volume 9.3; Platelet Count 247 k/uL (150-450); RBC 4.08 m/uL (3.80-5.40); RDW 15.4 % (11.5-15.5); WBC 5.1 k/uL (3.8-10.6)
[2019-12-06 08:26] LABS: Calcium 8.5 mg/dL (8.4-10.2); Potassium 3.8 mmol/L (3.5-5.1)
[2019-12-06] MEDS: MEMANTINE 5 MG TAB PO SCH ×2 (09:14→21:02)
[2019-12-06] MEDS: amLODIPine 10 MG TAB PO SCH (09:14)
[2019-12-06] MEDS: CEPHALEXIN 500 MG CAP PO SCH ×3 (09:14→21:02)
[2019-12-06] MEDS: PANTOPRAZOLE 40 MG TABLET PO SCH (09:14)
[2019-12-06] MEDS: METOPROLOL TARTRATE 25 MG TAB PO SCH ×2 (09:15→21:03)
[2019-12-06] MEDS: RIVAROXABAN 15 MG TAB PO SCH (09:15)
[2019-12-06] MEDS: SERTRALINE 50 MG TAB PO SCH (09:15)
[2019-12-06] MEDS: FUROSEMIDE 20 MG TAB PO SCH (09:15)
[2019-12-06 09:21] LABS: Lymphocytes # (M) 1.73 k/uL (1.0-4.8); Monocytes # (M) 0.61 k/uL (0-1.0); Neutrophils # (M) 2.65 k/uL (1.3-7.7); Neutrophils % (M) 52 %; Nucleated Red Blood Cells 0 /100 WBC (0-0); Total Cells Counted 100
--- NOTE | 2019-12-06 15:45 | P.PN ---
Subjective This is a pleasant 84-year-old patient of Dr. jules. Chronic stable medical conditions include COPD, dementia, hypertension, osteoarthritis, hypothyroid,. Patient visits her son and [id number]. Normally uses a walker. He is assistant to the president with some activities. Patient was noted to have a cough tired and became less active the course of 24 hours. We'll rundown congested chest. In the ER was noted to have a low-grade fever. Also found to be A. fib with rapid ventricular rate became more short of breath and ear. The problem BiPAP. Also put on a Cardizem drip for the A. fib. Really tired not able to give herself much of her history. INVESTIGATIONS, reviewed in the clinical context: White count 9 hemoglobin 11.7 potassium 4.5 BUN 24 creatinine 1.8 to peptic acid 2.8 Troponin I 0.018, 0.0-5 UA positive for leukoesterase, bacteria hyaline casts Influenza type A RNA positive EKG tracing personally reviewed by -Rj ayala with a rate around 130s Chest x-ray film personally reviewed by me-possible basal infiltrate 12/02/2019 Patient is currently lying in the bed comfortably. Confused and disoriented due to underlying dementia. Breathing status is improving. Patient is being continued on Tamiflu and and antibiotics. Pulmonary is following. Heart rate is controlled. Cardizem drip has been discontinued. Cardiology has seen the patient. 2-D echocardiogram was done. Ejection fraction 45-50%. Currently off BiPAP. Patient is also on some IV Lasix. Monitor renal function. Patient has been afebrile. No nausea vomiting or abdominal pain. No diarrhea. Discussed with the family at bedside in detail. 12/03/2019 Patient is currently lying in the bed comfortably. Breathing status is improving. Heart rate is controlled. Lasix changed to by mouth. Patient is being continued on Tamiflu. Hemodynamically stable. Patient is being transferred to general medical floor today. Patient is a poor historian due to underlying dementia along with possible delirium. 12/04/2019 Patient is currently lying in the bed comfortably. Awake alert but not oriented. Seems delirious. Patient did rule out for IV line and refusing to take medications. Currently patient is saturating well on room air. No fever or chills or night. No chest pain or shortness of breath. Continued on breathing treatments and completed Tamiflu course. Urine cultures positive for E. coli. Blood cultures have been negative so far Patient will be continued on ceftriaxone. 12/05/2019 Patient is currently sitting in the chair comfortably. But delirious and noncooperative. Patient pulled out IV line yesterday. Antibiotics will be changed to by mouth. patient has been afebrile. Currently saturating well on 94% on room air. Patient is being continued on DuoNeb's and cardiac medications including anticoagulation. Patient is not eating very well and refusing IV fluids. Monitor closely and anticipate discharged to extended care facility for next 24- 48 hours. 12/06/2019 Patient finished his dose of Tamiflu, his respiratory symptoms are improving. Vitals stable. Hemodynamically stable and his creatinine is stable at 1.4, patient is aware about his chronic kidney disease. Patient remains on Xarelto and metoprolol as well as Keflex for his UTI. Urine culture is growing E. coli which is sensitive. Patient is been followed by pulmonary team. Patient will need a pulmonary clearance prior to discharge Objective - Vital Signs Vital signs: Vital Signs Temp 98.2 F 12/06/19 12:08 Pulse 77 12/06/19 12:08 Resp 16 12/06/19 12:08 BP 102/55 12/06/19 12:08 Pulse Ox 93 L 12/06/19 12:08 Intake & Output 12/05/19 12/06/19 12/06/19 18:59 06:59 18:59 Intake Total 1300 1180 Output Total 2 Balance 1298 1180 Intake: Oral 1300 1180 Output: Stool 2 Other: Voiding Method Toilet Toilet Incontinent Diaper Diaper # Voids 1 3 2 # Bowel Movements 1 1 - Exam Patient is lying in the bed comfortably, no acute distress, awake alert but disoriented. Delirious. HEENT: Normocephalic. Neck is supple. Pupils reactive. Nostrils clear. Oral cavity is moist. Ears reveal no drainage. Neck reveals no JVD, carotid bruits, or thyromegaly. CHEST EXAMINATION: Trachea is central. Symmetrical expansion. Bibasilar diminished air entry. No wheezing or rhonchi. Lung sarmiento clear to auscultation and percussion. CARDIAC: Normal S1, S2 with no gallops. No murmurs ABDOMEN: Soft. Bowel sounds normal. No organomegaly. No abdominal bruits. Extremities: reveal no edema. No clubbing or cyanosis Neurologically awake, alert but not oriented . No gross focal deficits noted Skin: No rash or skin lesions. Psychiatric: Noncooperative Musculoskeletal: No joint swelling or deformity. Normal range of motion. - Labs CBC & Chem 7: 12/06/19 07:44 12/06/19 07:44 Labs: Abnormal Lab Results - Last 24 Hours (Table) 12/06/19 12/06/19 Range/Units 07:44 07:44 Hgb 10.4 L (11.4-16.0) gm/dL Hct 33.3 L (34.0-46.0) % BUN 38 H (7-17) mg/dL Creatinine 1.43 H (0.52-1.04) mg/dL Microbiology - Last 24 Hours (Table) 11/30/19 22:04 Blood Culture - Preliminary Blood No Growth after 120 hours Assessment and Plan Assessment: -Acute influenza A pneumonitis, cannot rule out secondary bacterial infection, causing sepsis POA -E. coli urinary tract infection -Persistent atrial fibrillation with a rapid ventricular rate, chronically on xarelto -Troponin leak likely from uncontrolled A. fib doubt acute coronary syndrome -Acute hypoxic respiratory failure patient requiring BiPAP initially. -Major cognitive impairment probably from late onset Alzheimer's dementia -Gait dysfunction uses a walker -Kidney injury, acute versus chronic or both -Acute metabolic encephalopathy, multifactorial -Acute COPD exacerbation in an ex-smoker. Improved -Essential hypertension -Primary osteoarthritis -Hypothyroid Plan: Patient was initially placed on BiPAP. Currently oxygenating well on nasal cannula oxygen. Completed Tamiflu. DuoNeb's. Continue with antibiotics. Patient has been followed closely by pulmonary service. Pulmonary service has not cleared the patient Labs and medication were reviewed.. Continue same treatment. Continue with symptomatic treatment. Resume home medication. Monitor lytes and vitals. DVT and GI prophylaxis. Further recommendations of the clinical course of the patient DVT prophylaxis: xarelto Prognosis is guarded
--- NOTE | 2019-12-06 15:46 | P.PN ---
Subjective Progress Note Date: 12/06/19 Principal diagnosis: Influenza A pneumonia Acute on chronic respiratory failure due to multifactorial processes including influenza A pneumonia, sepsis, acute on chronic systolic heart failure Altered mental status confusion Sepsis secondary due to number influenza A pneumonia as well as urinary tract infection A. fib with RVR Acute on chronic systolic heart failure 12/06/2019, patient seen eval examined during the rounds labs reviewed medications reviewed doing very well, continued to get breathing treatment oxygenation is stable 12/05/2019, patient seen eval examined during the rounds labs reviewed medications reviewed still intermittent and shortness of breasts present but severity has improved, activity is been escalated patient is up on chair, antibiotics have been changed to oral, oxygen saturation 94% on room air 12/04/2019, patient seen and evaluated examined during the rounds labs reviewed medications reviewed urine culture is positive for E. coli not ESBL, blood cultures are negative, last chest x-ray on December 01 remained stable respiratory status continued to improve slowly labs reviewed medications reviewed 12/03/2019, patient seen eval examined during the rounds is still have ongoing shortness of breath cough and symptoms slightly better denies any sputum production shortness of breath slightly improved labs reviewed medications revi ewed This is a 84-year-old female who was seen evaluated examined on third floor patient presented into the emergency department with increased symptoms of shortness of breath and generalized aches and pain patient has been found to positive for influenza as well, patient has been on A. fib with rapid ventricular response has been admitted to the hospital initially she was placed on BiPAP and Cardizem drip, subsequently changed to nasal cannula currently on 2 L oxygen, BiPAP has been discontinued, echocardiogram revealed ejection fraction of 45%, not much data obtained from the patient she is pleasantly confused Objective - Vital Signs Vital signs: Vital Signs Temp 98.2 F 12/06/19 12:08 Pulse 77 12/06/19 12:08 Resp 16 12/06/19 12:08 BP 102/55 12/06/19 12:08 Pulse Ox 93 L 12/06/19 12:08 Intake & Output 12/05/19 12/06/19 12/06/19 18:59 06:59 18:59 Intake Total 1300 1180 Output Total 2 Balance 1298 1180 Intake: Oral 1300 1180 Output: Stool 2 Other: Voiding Method Toilet Toilet Incontinent Diaper Diaper # Voids 1 3 2 # Bowel Movements 1 - Exam - Constitutional General appearance: average body habitus, cooperative, disheveled, mild distress - EENT Eyes: EOMI, PERRLA, normal appearance ENT: normal oropharynx Ears: bilateral: normal - Neck Carotids: bilateral: upstroke normal Thyroid: bilateral: normal size - Respiratory Respiratory: bilateral: rales, rhonchi, wheezing, negative: CTA, diminished, dullness - Cardiovascular Rhythm: irregularly irregular Heart sounds: normal: S1, S2 - Gastrointestinal General gastrointestinal: normal bowel sounds, soft - Neurologic Neurologic: CNII-XII intact - Musculoskeletal Musculoskeletal: gait normal, generalized weakness, strength equal bilaterally - Psychiatric Psychiatric: appropriate affect, intact judgment & insight - Labs CBC & Chem 7: 12/06/19 07:44 12/06/19 07:44 Labs: Abnormal Lab Results - Last 24 Hours (Table) 12/06/19 12/06/19 Range/Units 07:44 07:44 Hgb 10.4 L (11.4-16.0) gm/dL Hct 33.3 L (34.0-46.0) % BUN 38 H (7-17) mg/dL Creatinine 1.43 H (0.52-1.04) mg/dL Microbiology - Last 24 Hours (Table) 11/30/19 22:04 Blood Culture - Preliminary Blood No Growth after 120 hours Assessment and Plan Assessment: Influenza A pneumonia Acute on chronic respiratory failure due to multifactorial processes including influenza A pneumonia, sepsis, acute on chronic systolic heart failure Altered mental status confusion Sepsis secondary due to number influenza A pneumonia as well as urinary tract infection A. fib with RVR Acute on chronic systolic heart failure UTI due to E. coli Plan: Agree with Katja We'll cut down the IV fluids to 50 mL an hour Continue bronchodilator IV antibiotics with Rocephin Lasix 1 Time with Patient: Greater than 30
[2019-12-06] MEDS: DONEPEZIL 10 MG TAB PO SCH (21:02)
[2019-12-07] MEDS: LEVOTHYROXINE 88 MCG TAB PO SCH (05:43)
--- NOTE | 2019-12-07 06:58 | P.PN ---
Subjective This is a pleasant 84-year-old patient of Dr. jules. Chronic stable medical conditions include COPD, dementia, hypertension, osteoarthritis, hypothyroid,. Patient visits her son and [id number]. Normally uses a walker. He is housekeeping assistant with some activities. Patient was noted to have a cough tired and became less active the course of 24 hours. We'll rundown congested chest. In the ER was noted to have a low-grade fever. Also found to be A. fib with rapid ventricular rate became more short of breath and ear. The problem BiPAP. Also put on a Cardizem drip for the A. fib. Really tired not able to give herself much of her history. INVESTIGATIONS, reviewed in the clinical context: White count 9 hemoglobin 11.7 potassium 4.5 BUN 24 creatinine 1.8 to peptic acid 2.8 Troponin I 0.018, 0.0-5 UA positive for leukoesterase, bacteria hyaline casts Influenza type A RNA positive EKG tracing personally reviewed by -Rj ayala with a rate around 130s Chest x-ray film personally reviewed by me-possible basal infiltrate 12/02/2019 Patient is currently lying in the bed comfortably. Confused and disoriented due to underlying dementia. Breathing status is improving. Patient is being continued on Tamiflu and and antibiotics. Pulmonary is following. Heart rate is controlled. Cardizem drip has been discontinued. Cardiology has seen the patient. 2-D echocardiogram was done. Ejection fraction 45-50%. Currently off BiPAP. Patient is also on some IV Lasix. Monitor renal function. Patient has been afebrile. No nausea vomiting or abdominal pain. No diarrhea. Discussed with the family at bedside in detail. 12/03/2019 Patient is currently lying in the bed comfortably. Breathing status is improving. Heart rate is controlled. Lasix changed to by mouth. Patient is being continued on Tamiflu. Hemodynamically stable. Patient is being transferred to general medical floor today. Patient is a poor historian due to underlying dementia along with possible delirium. 12/04/2019 Patient is currently lying in the bed comfortably. Awake alert but not oriented. Seems delirious. Patient did rule out for IV line and refusing to take medications. Currently patient is saturating well on room air. No fever or chills or night. No chest pain or shortness of breath. Continued on breathing treatments and completed Tamiflu course. Urine cultures positive for E. coli. Blood cultures have been negative so far Patient will be continued on ceftriaxone. 12/05/2019 Patient is currently sitting in the chair comfortably. But delirious and noncooperative. Patient pulled out IV line yesterday. Antibiotics will be changed to by mouth. patient has been afebrile. Currently saturating well on 94% on room air. Patient is being continued on DuoNeb's and cardiac medications including anticoagulation. Patient is not eating very well and refusing IV fluids. Monitor closely and anticipate discharged to extended care facility for next 24- 48 hours. 12/06/2019 Patient finished his dose of Tamiflu, his respiratory symptoms are improving. Vitals stable. Hemodynamically stable and his creatinine is stable at 1.4, patient is aware about his chronic kidney disease. Patient remains on Xarelto and metoprolol as well as Keflex for his UTI. Urine culture is growing E. coli which is sensitive. Patient is been followed by pulmonary team. Patient will need a pulmonary clearance prior to discharge 12/07/2019 Patient lying in bed, not in respiratory distress, patient looks confused at baseline however she answers most questions appropriately, she denies pain, left leg chest pain or abdominal pain. No other specific complaints. Vitals stable, blood pressure on the low side 93/54, patient heart rate is 60-84, breathing rate 16-20. Previously her systolic blood pressure was 100-120s, PATIENT some IV fluids for low blood pressure. She still on Keflex for UTI, she is also on Xarelto for A. fib. We will check labs this morning, CBC and BMP Objective - Vital Signs Vital signs: Vital Signs Temp 98.3 F 12/07/19 05:00 Pulse 84 12/07/19 05:00 Resp 16 12/07/19 05:00 BP 93/54 12/07/19 05:00 Pulse Ox 91 L 12/07/19 05:00 Intake & Output 12/06/19 12/06/19 12/07/19 06:59 18:59 06:59 Intake Total 1180 590 Balance 1180 590 Intake: Oral 1180 590 Other: Voiding Method Toilet Incontinent Incontinent Diaper # Voids 3 1 2 # Bowel Movements 1 - Exam Patient is lying in the bed comfortably, no acute distress, awake alert but disoriented. Delirious. HEENT: Normocephalic. Neck is supple. Pupils reactive. Nostrils clear. Oral cavity is moist. Ears reveal no drainage. Neck reveals no JVD, carotid bruits, or thyromegaly. CHEST EXAMINATION: Trachea is central. Symmetrical expansion. Bibasilar diminished air entry. No wheezing or rhonchi. Lung sarmiento clear to auscultation and percussion. CARDIAC: Normal S1, S2 with no gallops. No murmurs ABDOMEN: Soft. Bowel sounds normal. No organomegaly. No abdominal bruits. Extremities: reveal no edema. No clubbing or cyanosis Neurologically awake, alert but not oriented . No gross focal deficits noted Skin: No rash or skin lesions. Psychiatric: Noncooperative Musculoskeletal: No joint swelling or deformity. Normal range of motion. - Labs CBC & Chem 7: 12/06/19 07:44 12/06/19 07:44 Labs: Abnormal Lab Results - Last 24 Hours (Table) 12/06/19 12/06/19 Range/Units 07:44 07:44 Hgb 10.4 L (11.4-16.0) gm/dL Hct 33.3 L (34.0-46.0) % BUN 38 H (7-17) mg/dL Creatinine 1.43 H (0.52-1.04) mg/dL Microbiology - Last 24 Hours (Table) 11/30/19 22:04 Blood Culture - Final Blood No Growth after 144 hours Assessment and Plan Assessment: -Hypertension, could be due to dehydration versus others -Acute influenza A pneumonitis, cannot rule out secondary bacterial infection, causing sepsis POA -E. coli urinary tract infection -Persistent atrial fibrillation with a rapid ventricular rate, chronically on xarelto -Troponin leak likely from uncontrolled A. fib doubt acute coronary syndrome -Acute hypoxic respiratory failure patient requiring BiPAP initially. -Major cognitive impairment probably from late onset Alzheimer's dementia -Gait dysfunction uses a walker -Kidney injury, acute versus chronic or both -Acute metabolic encephalopathy, multifactorial -Acute COPD exacerbation in an ex-smoker. Improved -Essential hypertension -Primary osteoarthritis -Hypothyroid Plan: Patient was initially placed on BiPAP. Currently oxygenating well on nasal cannula oxygen. Completed Tamiflu. DuoNeb's. Continue with antibiotics. Start the patient on normal saline and reevaluate. Patient has been followed closely by pulmonary service. Pulmonary service has not cleared the patient. Check labs Labs and medication were reviewed.. Continue same treatment. Continue with symptomatic treatment. Resume home medication. Monitor lytes and vitals. DVT and GI prophylaxis. Further recommendations of the clinical course of the patient DVT prophylaxis: xarelto Prognosis is guarded
[2019-12-07] MEDS: ALBUTEROL NEBULIZED 2.5 MG/3 ML INHALATION SCH ×4 (07:37→19:57)
[2019-12-07 07:45] LABS: Basophils % (A) 1 %; Eosinophils # (A) 0.1 k/uL (0-0.7); Eosinophils % (A) 2 %; HCT 33.3 % (34.0-46.0); HGB 10.3 gm/dL (11.4-16.0); Hypochromasia Moderate; Lymphocytes # (A) 1.5 k/uL (1.0-4.8); Lymphocytes % (A) 27 %; MCH 25.1 pg (25.0-35.0); MCV 80.8 fL (80.0-100.0); Mean Platelet Volume 8.8; Monocytes # (A) 0.4 k/uL (0-1.0); Monocytes % (A) 7 %; Neutrophils # (A) 3.3 k/uL (1.3-7.7); Neutrophils % (A) 59 %; Platelet Count 272 k/uL (150-450); RBC 4.12 m/uL (3.80-5.40); RDW 15.4 % (11.5-15.5); WBC 5.6 k/uL (3.8-10.6)
[2019-12-07 07:58] LABS: Calcium 8.5 mg/dL (8.4-10.2); Potassium 3.5 mmol/L (3.5-5.1)
[2019-12-07] MEDS: CEPHALEXIN 500 MG CAP PO SCH ×3 (08:59→21:49)
[2019-12-07] MEDS: FUROSEMIDE 20 MG TAB PO SCH (08:59)
[2019-12-07] MEDS: amLODIPine 10 MG TAB PO SCH (08:59)
[2019-12-07] MEDS: PANTOPRAZOLE 40 MG TABLET PO SCH (08:59)
[2019-12-07] MEDS: SERTRALINE 50 MG TAB PO SCH (09:00)
[2019-12-07] MEDS: METOPROLOL TARTRATE 25 MG TAB PO SCH (09:00)
[2019-12-07] MEDS: RIVAROXABAN 15 MG TAB PO SCH (09:00)
[2019-12-07] MEDS: MEMANTINE 5 MG TAB PO SCH ×2 (09:00→21:50)
[2019-12-07 09:54] VITALS: BMI 31.1
[2019-12-07] MEDS: SODIUM CHLORIDE 0.9% 1,000 ML IV SCH ×2 (11:25→21:48)
[2019-12-07] MEDS: METOPROLOL TARTRATE 12.5 MG TAB PO SCH (21:49)
[2019-12-07] MEDS: DONEPEZIL 10 MG TAB PO SCH (21:49)
[2019-12-08] MEDS: LEVOTHYROXINE 88 MCG TAB PO SCH (05:36)
[2019-12-08] MEDS: CEPHALEXIN 500 MG CAP PO SCH ×2 (08:29→15:33)
[2019-12-08] MEDS: FUROSEMIDE 20 MG TAB PO SCH (08:29)
[2019-12-08] MEDS: PANTOPRAZOLE 40 MG TABLET PO SCH (08:29)
[2019-12-08] MEDS: amLODIPine 10 MG TAB PO SCH (08:29)
[2019-12-08] MEDS: SERTRALINE 50 MG TAB PO SCH (08:29)
[2019-12-08] MEDS: METOPROLOL TARTRATE 12.5 MG TAB PO SCH (08:29)
[2019-12-08] MEDS: MEMANTINE 5 MG TAB PO SCH (08:30)
[2019-12-08] MEDS: RIVAROXABAN 15 MG TAB PO SCH (08:30)
[2019-12-08] MEDS: ALBUTEROL NEBULIZED 2.5 MG/3 ML INHALATION SCH ×3 (09:10→15:42)
[2019-12-08 11:40] VITALS: BP 133/72; PULSE 81; RESP 18; TEMP 98
--- NOTE | 2019-12-08 12:17 | P.DS ---
Providers Date of admission: 12/01/19 00:24 Expected date of discharge: 12/08/19 Attending physician: Louis Lopez Consults: 12/01/19 00:25 Consult Physician Routine Consulting Provider: Aaron Zuñiga Consult Reason/Comments: Rapid atrial fibrillation Do you want consulting provider notified?: Yes 12/01/19 21:23 Consult Physician Routine Consulting Provider: Keanu Valentin Consult Reason/Comments: COPD Do you want consulting provider notified?: Yes Primary care physician: [facility] Course: Chief Complaint: Short of breath tired History of presenting complaint: This is a pleasant 84-year-old patient of Dr. albarran. Chronic stable medical conditions include COPD, dementia, hypertension, osteoarthritis, hypothyroid,. Patient lives with her son and [id number]. Normally uses a walker.. Patient was noted to have a cough tired and became less active the course of 24 hours,rundown congested chest. In the ER was noted to have a low-grade fever. Also found to be A. fib with rapid ventricular rate became more short of breath . Placed on BiPAP. Also put on a Cardizem drip for the A. fib. Really tired not able to give herself much of her history. Hospital course: Initially was put on a BiPAP i, Cardizem drip. Tested positive for influenza A. Put on Tamiflu. Bronchodilators, steroids. Initial creatinine was 1.82. Did come down to 1.23. Responded well to the same. Possible some fluid overload due to uncontrolled A. fib. Today-feeling much better. Eating feeling well. Breathing stable. Pulse ox 93% on room air. Care discussed with the nurse patient and manager hospitality. Discussion and discharge planning more than 35 minutes Consultation: Dr. Robert Valentin from pulmonary Dr. Robert Zuñiga from cardiology Physical examination: VITAL SIGNS: 98, 81, 18, 133/72, 93% on room air GENERAL: Laying in bed, comfortable EYES: Pupils equal. Conjunctiva normal. HEENT: External appearance of nose and ears normal, oral cavity grossly normal. NECK: JVD unable to assess; masses not palpable. HEART: Heart sounds irregular no edema. LUNGS: Respiratory rate normal, decreased breaths ABDOMEN: Soft, nontender, liver spleen not palpable, no masses palpable. PSYCH: Awake, able to answer simple questions INVESTIGATIONS, reviewed in the clinical context: White count 5.6 hemoglobin 10.3 potassium 3.5 bun 35 creatinine 1.4 to Previous testing White count 9 hemoglobin 11.7 potassium 4.5 BUN 24 creatinine 1.8 to peptic acid 2.8 Troponin I 0.018, 0.0-5 UA positive for leukoesterase, bacteria hyaline casts Influenza type A RNA positive EKG tracing personally reviewed by me-A. fib with a rate around 130s Chest x-ray film personally reviewed by me-possible basal infiltrate 2-D echo-EF 45-50% Assessment: -Acute influenza A pneumonitis, possible secondary bacterial infection, causing sepsis POA -Acute pulmonary edema from uncontrolled A. fib. No CHF -Persistent atrial fibrillation with a rapid ventricular rate, chronically on xarelto, POA -Troponin leak likely from uncontrolled A. fib , no acute coronary syndrome -Acute hypoxic respiratory failure patient requiring BiPAP, POA -Major cognitive impairment probably from late onset Alzheimer's dementia -Gait dysfunction uses a walker - UTI from cystitis from E. coli -Acute kidney injury, ATN, prerenal component also, POA -Possible chronic kidney disease stage III from nephrosclerosis -Acute metabolic encephalopathy, multifactorial, POA -Acute COPD exacerbation in an ex-smoker, POA -Essential hypertension -Primary osteoarthritis -Hypothyroid Disposition: ECF/[facility] Patient Condition at Discharge: Fair Plan - Discharge Summary Discharge Rx Participant: No New Discharge Prescriptions: New Metoprolol Tartrate [Lopressor] 12.5 mg PO BID tab Albuterol Nebulized [Ventolin Nebulized] 2.5 mg INHALATION TID ml Continue amLODIPine [Norvasc] 10 mg PO DAILY Rivaroxaban [Xarelto] 15 mg PO DAILY Omeprazole [PriLOSEC] 20 mg PO DAILY Levothyroxine Sodium [Synthroid] 88 mcg PO DAILY Donepezil [Aricept] 10 mg PO HS Albuterol Inhaler [Ventolin Hfa Inhaler] 1 - 2 puff INHALATION Q6HR PRN #1 inhaler PRN Reason: Wheezing Memantine [Namenda] 10 mg PO BID Sertraline [Zoloft] 50 mg PO DAILY Discharge Medication List Albuterol Inhaler [Ventolin Hfa Inhaler] 1 - 2 puff INHALATION Q6HR PRN #1 inhaler 04/29/17 [Rx] Donepezil [Aricept] 10 mg PO HS 04/29/17 [History] Levothyroxine Sodium [Synthroid] 88 mcg PO DAILY 04/29/17 [History] Omeprazole [PriLOSEC] 20 mg PO DAILY 04/29/17 [History] Rivaroxaban [Xarelto] 15 mg PO DAILY 04/29/17 [History] amLODIPine [Norvasc] 10 mg PO DAILY 04/29/17 [History] Memantine [Namenda] 10 mg PO BID 11/30/19 [History] Sertraline [Zoloft] 50 mg PO DAILY 11/30/19 [History] Albuterol Nebulized [Ventolin Nebulized] 2.5 mg INHALATION TID ml 12/08/19 [Rx] Metoprolol Tartrate [Lopressor] 12.5 mg PO BID tab 12/08/19 [Rx] Follow up Appointment(s)/Referral(s): Mac Mcgarry DO [STAFF PHYSICIAN] - 1-2 Days Shyam Albarran MD [Primary Care Provider] - As Needed Keanu Valentin MD [STAFF PHYSICIAN] - 1 Week Activity/Diet/Wound Care/Special Instructions: Hari
--- NOTE | 2019-12-08 12:24 | P.PN ---
Subjective Progress Note Date: 12/07/19 Principal diagnosis: Influenza A pneumonia Acute on chronic respiratory failure due to multifactorial processes including influenza A pneumonia, sepsis, acute on chronic systolic heart failure Altered mental status confusion Sepsis secondary due to number influenza A pneumonia as well as urinary tract infection A. fib with RVR Acute on chronic systolic heart failure 12/07/2019, patient seen eval examined during the rounds, no significant changes present patient remains confused, no specific complains of present off chest pain or headache, hemodynamic status stable, patient is being given anticoagulation for A. fib labs reviewed medications reviewed 12/06/2019, patient seen eval examined during the rounds labs reviewed medications reviewed doing very well, continued to get breathing treatment oxygenation is stable 12/05/2019, patient seen eval examined during the rounds labs reviewed medications reviewed still intermittent and shortness of breasts present but severity has improved, activity is been escalated patient is up on chair, antibiotics have been changed to oral, oxygen saturation 94% on room air 12/04/2019, patient seen and evaluated examined during the rounds labs reviewed medications reviewed urine culture is positive for E. coli not ESBL, blood cultures are negative, last chest x-ray on December 01 remained stable respiratory status continued to improve slowly labs reviewed medications reviewed 12/03/2019, patient seen eval examined during the rounds is still have ongoing shortness of breath cough and symptoms slightly better denies any sputum production shortness of breath slightly improved labs reviewed medications reviewed This is a 84-year-old female who was seen evaluated examined on third floor patient presented into the emergency department with increased symptoms of shortness of breath and generalized aches and pain patient has been found to positive for influenza as well, patient has been on A. fib with rapid ventric ular response has been admitted to the hospital initially she was placed on BiPAP and Cardizem drip, subsequently changed to nasal cannula currently on 2 L oxygen, BiPAP has been discontinued, echocardiogram revealed ejection fraction of 45%, not much data obtained from the patient she is pleasantly confused Objective - Vital Signs Vital signs: Vital Signs Temp 97.9 F 12/07/19 12:05 Pulse 92 12/07/19 12:05 Resp 16 12/07/19 12:05 BP 104/54 12/07/19 12:05 Pulse Ox 95 12/07/19 12:05 Intake & Output 12/06/19 12/07/19 12/07/19 18:59 06:59 18:59 Intake Total 590 476 Balance 590 476 Weight 70 kg Intake: Oral 590 476 Other: Voiding Method Incontinent Incontinent Incontinent # Voids 1 2 1 # Bowel Movements 1 - Exam - Constitutional General appearance: average body habitus, cooperative, disheveled, mild distress - EENT Eyes: EOMI, PERRLA, normal appearance ENT: normal oropharynx Ears: bilateral: normal - Neck Carotids: bilateral: upstroke normal Thyroid: bilateral: normal size - Respiratory Respiratory: bilateral: rales, rhonchi, wheezing, negative: CTA, diminished, dullness - Cardiovascular Rhythm: irregularly irregular Heart sounds: normal: S1, S2 - Gastrointestinal General gastrointestinal: normal bowel sounds, soft - Neurologic Neurologic: CNII-XII intact - Musculoskeletal Musculoskeletal: gait normal, generalized weakness, strength equal bilaterally - Psychiatric Psychiatric: appropriate affect, intact judgment & insight - Labs CBC & Chem 7: 12/07/19 07:17 12/07/19 07:17 Labs: Abnormal Lab Results - Last 24 Hours (Table) 12/07/19 12/07/19 Range/Units 07:17 07:17 Hgb 10.3 L (11.4-16.0) gm/dL Hct 33.3 L (34.0-46.0) % Carbon Dioxide 33 H (22-30) mmol/L BUN 35 H (7-17) mg/dL Creatinine 1.42 H (0.52-1.04) mg/dL Microbiology - Last 24 Hours (Table) 11/30/19 22:04 Blood Culture - Final Blood No Growth after 144 hours Assessment and Plan Assessment: Influenza A pneumonia Acute on chronic respiratory failure due to multifactorial processes including influenza A pneumonia, sepsis, acute on chronic systolic heart failure Altered mental status confusion Sepsis secondary due to number influenza A pneumonia as well as urinary tract infection A. fib with RVR Acute on chronic systolic heart failure UTI due to E. coli Plan: Agree with Xeralto Gently rehydrated Continue bronchodilator Continue oral antibiotic Time with Patient: Greater than 30
--- NOTE | 2019-12-08 12:26 | P.PN ---
Subjective Progress Note Date: 12/08/19 Principal diagnosis: Influenza A pneumonia Acute on chronic respiratory failure due to multifactorial processes including influenza A pneumonia, sepsis, acute on chronic systolic heart failure Altered mental status confusion Sepsis secondary due to number influenza A pneumonia as well as urinary tract infection A. fib with RVR Acute on chronic systolic heart failure 12/08/2019, patient seen eval examined during the rounds labs reviewed medications reviewed care plan discussed with RN, agree with discharge planning follow-up in outpatient setting, patient overall remained pleasantly confused 12/07/2019, patient seen eval examined during the rounds, no significant changes present patient remains confused, no specific complains of present off chest pain or headache, hemodynamic status stable, patient is being given anticoagulation for A. fib labs reviewed medications reviewed 12/06/2019, patient seen eval examined during the rounds labs reviewed medications reviewed doing very well, continued to get breathing treatment oxygenation is stable 12/05/2019, patient seen eval examined during the rounds labs reviewed medications reviewed still intermittent and shortness of breasts present but severity has improved, activity is been escalated patient is up on chair, antibiotics have been changed to oral, oxygen saturation 94% on room air 12/04/2019, patient seen and evaluated examined during the rounds labs reviewed medications reviewed urine culture is positive for E. coli not ESBL, blood cultures are negative, last chest x-ray on December 01 remained stable respiratory status continued to improve slowly labs reviewed medications reviewed 12/03/2019, patient seen eval examined during the rounds is still have ongoing shortness of breath cough and symptoms slightly better denies any sputum production shortness of breath slightly improved labs reviewed medications reviewed This is a 84-year-old female who was seen evaluated examined on third floor patient presented into the emergency department with increased symptoms of shortness of breath and generalized aches and pain patient has been found to positive for influenza as well, patient has been on A. fib with rapid ventricular response has been admitted to the hospital initially she was placed on BiPAP and Cardizem drip, subsequently changed to nasal cannula currently on 2 L oxygen, BiPAP has been discontinued, echocardiogram revealed ejection fraction of 45%, not much data obtained from the patient she is pleasantly confused Objective - Vital Signs Vital signs: Vital Signs Temp 98 F 12/08/19 11:39 Pulse 81 12/08/19 11:39 Resp 18 12/08/19 11:39 BP 133/72 12/08/19 11:39 Pulse Ox 93 L 12/08/19 11:39 Intake & Output 12/07/19 12/08/19 12/08/19 18:59 06:59 18:59 Intake Total 772 Output Total 1 Balance 772 -1 Weight 70 kg Intake: Oral 772 Output: Stool 1 Other: Voiding Method Incontinent Incontinent Incontinent # Voids 1 1 # Bowel Movements 1 - Exam - Constitutional General appearance: average body habitus, cooperative, disheveled, mild distress - EENT Eyes: EOMI, PERRLA, normal appearance ENT: normal oropharynx Ears: bilateral: normal - Neck Carotids: bilateral: upstroke normal Thyroid: bilateral: normal size - Respiratory Respiratory: bilateral: rales, rhonchi, wheezing, negative: CTA, diminished, dullness - Cardiovascular Rhythm: irregularly irregular Heart sounds: normal: S1, S2 - Gastrointestinal General gastrointestinal: normal bowel sounds, soft - Neurologic Neurologic: CNII-XII intact - Musculoskeletal Musculoskeletal: gait normal, generalized weakness, strength equal bilaterally - Psychiatric Psychiatric: appropriate affect, intact judgment & insight - Labs CBC & Chem 7: 12/07/19 07:17 12/07/19 07:17 Assessment and Plan Assessment: Influenza A pneumonia Acute on chronic respiratory failure due to multifactorial processes including influenza A pneumonia, sepsis, acute on chronic systolic heart failure Altered mental status confusion Sepsis secondary due to number influenza A pneumonia as well as urinary tract infection A. fib with RVR Acute on chronic systolic heart failure UTI due to E. coli Plan: Agree with Xeralto Gently rehydrated Continue bronchodilator Continue oral antibiotic Agree with placement ECF/discharge Time with Patient: Greater than 30
[2019-12-08] MEDS: ACETAMINOPHEN TAB 325 MG TAB PO PRN (15:33)
== END 2019-12-08 17:01 | DRG 871 ==
LOC: EC 22:21 → 3SCARD 12-01 00:24 → 5NMEDONC 12-02 17:22
PROVIDERS: ADMIT Hospitalist; ATTEND Hospitalist
PROC: 5A09557 Assistance with Respiratory Ventilation, Greater than 96 Consecutive Hours, Continuous Positive Airway Pressure (ICD-10-PCS; principal; 2019-12-01)
DX: A41.51 Sepsis due to Escherichia coli [E. coli] (principal); G93.41 Metabolic encephalopathy; J10.08 Influenza due to other identified influenza virus with other specified pneumonia; J96.21 Acute and chronic respiratory failure with hypoxia; N17.0 Acute kidney failure with tubular necrosis; I48.21 Permanent atrial fibrillation; I13.0 Hypertensive heart and chronic kidney disease with heart failure and stage 1 through stage 4 chronic kidney disease, or unspecified chronic kidney disease; E03.9 Hypothyroidism, unspecified; E86.0 Dehydration; B96.20 Unspecified Escherichia coli [E. coli] as the cause of diseases classified elsewhere; G30.1 Alzheimer's disease with late onset; J43.9 Emphysema, unspecified; F02.80 Dementia in other diseases classified elsewhere, unspecified severity, without behavioral disturbance, psychotic disturbance, mood disturbance, and anxiety; M19.91 Primary osteoarthritis, unspecified site; N18.3 Chronic kidney disease, stage 3 (moderate); N30.90 Cystitis, unspecified without hematuria; R26.9 Unspecified abnormalities of gait and mobility; Z79.01 Long term (current) use of anticoagulants; Z79.890 Hormone replacement therapy; Z79.899 Other long term (current) drug therapy; Z82.49 Family history of ischemic heart disease and other diseases of the circulatory system; Z86.73 Personal history of transient ischemic attack (TIA), and cerebral infarction without residual deficits; Z87.891 Personal history of nicotine dependence; Z83.6 Family history of other diseases of the respiratory system
CPT/HCPCS: 36415; 71045; 71046; 80048; 80053; 81001; 82550; 83605; 83735; 84484; 85025; 85027; 85610; 85730; 87040; 87077; 87086; 87186; 87502; 93005; 93306; 94640; 94660; 94760; 96361; 96365; 96366; 96367; 96376; 99291